=== PATIENT | male | born 1960 | race Caucasian/White ===

== ENCOUNTER 2023-05-24 09:10 | Emergency (ER) | payer OTHER, SELFPAY ==
--- NOTE | ~2023-05-24 | XR_ITS ---
EXAMINATION: XR CHEST CLINICAL INFORMATION: Shortness of breath. COMPARISON: None available. TECHNIQUE: Frontal view of the chest was obtained. FINDINGS: Lungs are well expanded. There appears to be chronic mild pleural thickening at the lung apices. No consolidation, pleural effusion or pneumothorax. Cardiac silhouette is normal in size. The hilar contours are normal. There is atherosclerotic calcification of the aortic arch. The visualized bones are unremarkable. XR/XR chest 1V IMPRESSION: No evidence of acute cardiopulmonary disease.
[2023-05-24 09:18] VITALS: BP 155/96; PULSE 116; O2SAT 100; BMI 29.3
[2023-05-24 09:22] VITALS: BP 140/96; PULSE 116; RESP 26; TEMP 36.6; O2SAT 95
[2023-05-24 09:24] VITALS: O2SAT 99
--- NOTE | 2023-05-24 09:24 | PC.NURSE ---
a&ox3, vss and up to date, sinus tachy on the desk monitor. pt biba d/t SOB/expiratory wheezing that started around 0400 this morning. SOB/WOB noted at tis time. expiratory wheezing noted while standing bedside/upon auscultation. denies hx of asthma/COPD. use of accessory muscles noted at this time. pt states he is feeling extremely anxious. pt denies chest pain on inspiration. received duo-neb treatment via ems. 95% on RA. pt placed on 2L via NC for comfort - 99%. respirations even and labored at this time. pt's bedside for support.
--- NOTE | 2023-05-24 09:32 | ECG_ITS ---
Test Reason : DYSPNEA Blood Pressure : / mmHG Vent. Rate : 115 BPM Atrial Rate : 115 BPM P-R Int : 152 ms QRS Dur : 134 ms QT Int : 346 ms P-R-T Axes : 068 -12 096 degrees QTc Int : 478 ms Sinus tachycardia Non-specific intra-ventricular conduction block T wave abnormality, consider lateral ischemia Abnormal ECG No previous ECGs available Referred By: Kedar Whiting Electronically Signed By:RA CARCAMO MD
[2023-05-24] MEDS: methylPREDNISolone Sod Succ 125 MG/2 ML VIAL IVPUSH (09:43)
--- NOTE | 2023-05-24 09:44 | PC.NURSE ---
pt receiving treatment from RT. xray bedside. medication administered per provider order. labs drawn/sent to lab. ekg completed. pt seems that nebulizer treatment is being effective - seems to be less anxious/shows less WOB/SOB at this time.
[2023-05-24 09:45] LABS: Basophils Absolute Auto 0.1 X10*3/uL (0.0-0.2); Basophils Percent Auto 0.5 % (0-2); Eosinophils Absolute Auto 0.2 X10*3/uL (0.0-0.4); Hematocrit 49.3 % (42.0-52.0); Hemoglobin 16.7 g/dl (14.0-18.0); Imm Gran Abs Auto 0.08 X10*3/uL (0.00-0.03); Imm Gran Pct Auto 0.4 % (0.0-0.4); Lymphocytes Absolute Auto 3.2 X10*3/uL (1.2-4.9); Lymphocytes Percent Auto 15.3 % (20-40); MANUAL DIFF FLAG SCAN; Mean Corpuscular HGB Conc 33.9 g/dl (31.0-36.0); Mean Corpuscular Hemoglobin 31.4 pg (27.0-33.0); Mean Corpuscular Volume 92.7 fL (80.0-98.0); Mean Platelet Volume 10.6 fL (9.4-12.4); Monocytes Absolute Auto 1.8 X10*3/uL (0.1-1.2); Monocytes Percent Auto 8.5 % (2-11); Neutrophils Absolute Auto 15.4 x10*3/uL (2.0-8.3); Neutrophils Percent Auto 74.3 % (45-73); Platelet Count 341 X10*3/uL (160-400); Red Blood Count 5.32 X10*6/uL (4.60-5.80); Red Cell Distribution Width 12.8 % (11.0-16.0); SCAN SMEAR FLAG 1; White Blood Count 20.7 X10*3/uL (4.8-10.8)
--- OUTSIDE RECORDS SUMMARY | 2023-05-24 09:48 | XMS_ITS | Continuity of Care Document ---
Author Name Unknown Organization [facility] Address [address] [place] [address]- Care Team Providers Care Security Systems Manager Name Role Phone Teja LEWIS, Melissa Currie Primary Care Physician [phone] Encounter [facility] N[facility] [id number] Date(s): 03/15/21 - 04/14/21 [facility] [place] [address], [place] [address] Allergies, Adverse Reactions, Alerts Substance Reaction Severity Status NKA Active Immunizations Given and Recorded Vaccine Date Status Refusal Reason SARS-CoV-2 (COVID-19) mRNA-1273 vaccine 10/23/20 R ecorded SARS-CoV-2 (COVID-19) mRNA-1273 vaccine 09/25/20 R ecorded influenza virus vaccine, inactivated 05/20/19 Give n influenza virus vaccine, inactivated 1 05/15/18 Gi raymond influenza virus vaccine, inactivated 2 05/04/17 Gi raymond influenza virus vaccine, inactivated 3 06/13/15 Re corded influenza virus vaccine, inactivated 4 06/12/13 Gi raymond influ virus vac, H1N1, inactive(oldterm) 05/31/12 Given Pneumococcal Vaccine (oldterm) 5 10/01/08 Given Tet/Diphth/Acel, Pertussis (oldterm) 6 10/01/08 Gi raymond 1Result Comment: [05/15/2018] [id number] 2Result Comment: [05/04/2017] [id number] [facility] Note: [facility] on 06[facility]/13 5Admin Note: charted for alicia 6Admin Note: charted for alicia Medications Accu-Chek Compact Lancets See Instructions, # 100 each, Refills 3, Tot. Refills 3, Maintenance, To check fasting blood sugar daily. E11.9 DM II, 12/02/19 15:26:00 EDT, Supply, 190, cm, 04/30/19 14:53:00 EDT, Height Start Date: 12/02/19 Status: Ordered aspirin buffered 81 mg oral tablet 1 tablet = 81 mg, By Mouth, Daily, # 90 tablet, 3 Refills, Maintenance, 08/21/13 11:12:03 Start Date: 08/21/13 Stop Date: 08/16/14 Status: Ordered lisinopril 2.5 mg oral tablet 2.5 mg, 1, tablet, By Mouth, Daily, # 90 tablet, Refills 1, Tot. Refills 1, Maintenance, 03/15/21 18:07:00 EDT, Route to Pharmacy Electronically, [facility], 190, cm, 11/24/20 13:50:00 EDT, Height Start Date: 03/15/21 Status: Ordered metFORMIN 500 mg oral tablet, extended release 2 tablet = 1,000 mg, By Mouth, 2 times a day, # 360 tablet, 3 Refills, Maintenance, 11/24/20 14:13:00 EDT, [facility], 190, cm, 11/24/20 13:50:00 EDT, Height Start Date: 11/24/20 Status: Ordered One Touch Ultra 2 Glucose Meter See Instructions, # 1 each, Maintenance, test sugar daily DX: E11.9, 12/11/19 10:08:00 EDT, Supply,190, cm, 04/30/19 14:53:00 EDT, Height Start Date: 12/11/19 Status: Ordered One Touch Ultra Test Strips See Instructions, # 100 each, Refills 3, Tot. Refills 3, Maintenance, check sugars daily DX: E11.9,12/12/19 9:01:00 EDT, Supply, 190, cm, 04/30/19 14:53:00 EDT, Height Start Date: 12/12/19 Status: Ordered Vitamin D3 See Instructions, 1000 iu daily, 0 Refills, Maintenance, 10/20/16 13:57:05 Start Date: 10/20/16 Status: Ordered Problem List Condition Effective Dates Status Health Status Inform ant Acute myocardial infarction(Confirmed) Active Coronary artery disease(Confirmed) Active Diabetes mellitus type 2(Confirmed) Active Hodgkin lymphoma(Confirmed) 11/21/84 Active Malignant melanoma of skin(Confirmed) 01/21/15 Active Social History Social History Type Response Smoking Status Never smoker entered on: 07/03/14 Sex
--- OUTSIDE RECORDS SUMMARY | 2023-05-24 09:48 | XMS_ITS | Continuity of Care Document ---
Author Name Unknown Organization [facility] Address [address] [place] [address]- Care Team Providers Care Reactor Fueling Supervisor Name Role Phone Teja LEWIS, Melissa Currie Primary Care Physician [phone] Encounter [facility] Date(s): 06/09/20 - 07/09/20 [facility] [address] [place] [address]- Attending Physician: Ish Dominguez Admitting Physician: AdmtrIsh Referring Physician: AdmtrIsh Allergies, Adverse Reactions, Alerts Substance Reaction Severity Status NKA Active Immunizations Given and Recorded Vaccine Date Status Refusal Reason influenza virus vaccine, inactivated 05/20/19 Give n influenza virus vaccine, inactivated 1 05/15/18 Gi raymond influenza virus vaccine, inactivated 2 05/04/17 Gi raymond influenza virus vaccine, inactivated 3 06/13/15 Re corded influenza virus vaccine, inactivated 4 06/12/13 Gi raymond influ virus vac, H1N1, inactive(oldterm) 05/31/12 Given Pneumococcal Vaccine (oldterm) 5 10/01/08 Given Tet/Diphth/Acel, Pertussis (oldterm) 6 10/01/08 Gi raymond 1Result Comment: [05/15/2018] [id number] 2Result Comment: [05/04/2017] [id number] 3[facility] 4Admin Note: given at [...] Date: 08/21/13 Stop Date: 08/16/14 Status: Ordered carvedilol 12.5 mg oral tablet 12.5 mg, 1, tablet, By Mouth, 2 times a day, # 180 tablet, Refills 3, Tot. Refills 3, Maintenance, 03/09/20 21:20:00 EDT, Route to Pharmacy Electronically, [facility], 190, cm, 12/20/19 9:27:00 EDT, Height Start Date: 03/09/20 Status: Ordered Lipitor 80 mg oral tablet 1 tablet = 80 mg, By Mouth, Daily, # 90 tablet, 3 Refills, Maintenance, 03/09/20 21:25:00 EDT, Tablet, [facility], 190, cm, 12/20/19 9:27:00 EDT, Height Start Date: 03/09/20 Status: Ordered lisinopril 2.5 mg oral tablet 2.5 mg, 1, tablet, By Mouth, Daily, # 90 tablet, Refills 3, Tot. Refills 3, Maintenance, 03/09/20 21:19:00 EDT, Route to Pharmacy Electronically, [facility], 190, cm, 12/20/19 9:27:00 EDT,Height Start Date: 03/09/20 Status: Ordered metFORMIN 500 mg oral tablet, extended release 2 tablet = 1,000 mg, By Mouth, 2 times a day, # 360 tablet, 3 Refills, Maintenance, 12/20/19 11:01:00 EDT, [facility], 190, cm, 12/20/19 9:27:00 EDT, Height Start Date: 12/20/19 Status: Ordered One Touch Ultra 2 Glucose [...]
--- OUTSIDE RECORDS SUMMARY | 2023-05-24 09:48 | XMS_ITS | Continuity of Care Document ---
Author Name Unknown Organization [facility] Address [address] [place] [address]- Care Team Providers Care Manager Activities Name Role Phone Teja LEWIS, Melissa Currie Primary Care Physician [phone] [facility]counter [facility] Date(s): 07/06/21 - 08/05/21 [facility] Adult [address] [place] [address]- Allergies, Adverse Reactions, Alerts Substance Reaction Severity Status NKA Active Immunizations Given and Recorded Vaccine Date Status Refusal Reason SARS-CoV-2 (COVID-19) mRNA-1273 vaccine 05/25/21 R ecorded SARS-CoV-2 (COVID-19) mRNA-1273 vaccine 10/23/20 R ecorded SARS-CoV-2 (COVID-19) mRNA-1273 vaccine 09/25/20 R ecorded influenza virus vaccine, inactivated 05/06/21 Kaleb rded influenza virus vaccine, inactivated 05/20/19 Give n influenza virus vaccine, inactivated 1 05/15/18 Gi raymond influenza virus vaccine, inactivated 2 05/04/17 Gi raymond influenza virus vaccine, inactivated 3 06/13/15 Re corded influenza virus vaccine, inactivated 4 06/12/13 Gi raymond influ virus vac, H1N1, inactive(oldterm) 05/31/12 Given Pneumococcal Vaccine (oldterm) 5 10/01/08 Given Tet/Diphth/Acel, Pertussis (oldterm) 6 10/01/08 Gi raymond 1Result Comment: [05/15/2018] [id number] 2Result Comment: [05/04/2017] 10911-995-23 3[facility] 4Admin Note: given at [...] 03/15/21 18:07:00 EDT, Route to Pharmacy Electronically, [facility], 190, cm, 11/24/20 13:50:00 EDT, Height Start Date: 03/15/21 Status: Ordered metFORMIN 500 mg oral tablet, extended release 2 tablet = 1,000 mg, By Mouth, 2 times a day, # 360 tablet, 3 Refills, Maintenance, 11/24/20 14:13:00 EDT, [facility], 190, cm, 11/24/20 13:50:00 [...] 0 Refills, Maintenance, 10/20/16 13:57:05 Start Date: 3/23/17 Status: Ordered Problem List Condition Effective Dates Status Health Status Inform ant Acute myocardial infarction(Confirmed) Active Coronary artery disease(Confirmed) Active Diabetes mellitus type 2(Confirmed) Active Hodgkin lymphoma(Confirmed) 11/21/84 Active Malignant melanoma of skin(Confirmed) 01/21/15 Active Social History Social History Type Response Smoking Status Never smoker entered on: 07/03/14 Sex
--- OUTSIDE RECORDS SUMMARY | 2023-05-24 09:48 | XMS_ITS | Continuity of Care Document ---
Author Name Unknown Organization [facility] Address [address] [place] [address]- Care Team Providers Care Industrial Locomotive Operator Name Role Phone Teja LEWIS, Melissa Currie Primary Care Physician [phone] Encounter [facility] Date(s): 05/31/22 - 06/30/22 [facility] [address] [place] [address]- Allergies, Adverse Reactions, Alerts No Known Allergies Immunizations Given and Recorded Vaccine Date Status Refusal Reason influenza virus vaccine, inactivated 06/01/22 Kaleb rded influenza virus vaccine, inactivated 05/06/21 Kaleb rded influenza virus vaccine, inactivated 05/20/19 Give n influenza virus vaccine, inactivated 1 05/15/18 Gi raymnod influenza virus vaccine, inactivated 2 05/04/17 Gi raymond influenza virus vaccine, inactivated 3 06/13/15 Re corded influenza virus vaccine, inactivated 4 06/12/13 Gi raymond zoster vaccine, inactivated 05/02/22 Recorded zoster vaccine, inactivated 01/10/22 Recorded SARS-CoV-2 (COVID-19) mRNA-1273 vaccine 11/29/21 R ecorded SARS-CoV-2 (COVID-19) mRNA-1273 vaccine 05/25/21 R ecorded SARS-CoV-2 (COVID-19) mRNA-1273 vaccine 10/23/20 R ecorded SARS-CoV-2 (COVID-19) mRNA-1273 vaccine 09/25/20 R ecorded influ virus vac, H1N1, inactive(oldterm) 05/31/12 Given Pneumococcal Vaccine (oldterm) 5 10/01/08 Given Tet/Diphth/Acel, Pertussis (oldterm) 6 10/01/08 Gi raymond 1Result Comment: [05/15/2018] [id number] 2Result Comment: [05/04/2017] [id number] 3[facility] 4Admin Note: given at [...] times a day, # 180 tablet, Refills 2, Tot. Refills 2, Maintenance, 02/07/22 11:21:00 EDT, Route to Pharmacy Electronically, [facility], 190, cm, 02/07/22 11:05:00 EDT, Height Start Date: 02/07/22 Status: Ordered Farxiga 5 mg oral tablet 1 tablet = 5 mg, By Mouth, Daily, # 30 tablet, 6 Refills, Maintenance, 06/13/22 11:11:00 EST, Tablet, Partial fill upon patient request if the prescription is for a schedule II opioid drug. Start Date: 06/13/22 Status: Ordered Lipitor 80 mg oral tablet 1 tablet = 80 mg, By Mouth, Daily, # 90 tablet, 3 Refills, Maintenance, 02/07/22 11:21:00 EDT, Tablet, [facility], 190, cm, 02/07/22 11:05:00 EDT, Height Start Date: 02/07/22 Status: Ordered lisinopril 2.5 mg oral tablet 2.5 mg, 1, tablet, By Mouth, Daily, # 90 tablet, Refills 2, Tot. Refills 2, Maintenance, 02/07/22 11:21:00 EDT, Route to Pharmacy Electronically, [facility], 190, cm, 02/07/22 11:05:00 EDT, Height Start Date: 02/07/22 Status: Ordered metFORMIN 500 mg oral tablet, extended release 2 tablet = 1,000 mg, By Mouth, 2 times a day, # 360 tablet, 3 Refills, Maintenance, 02/07/22 11:22:00 EDT, [facility], 190, cm, 02/07/22 11:05:00 EDT, Height Start Date: 02/07/22 Status: Ordered One Touch Ultra 2 Glucose [...] Date: 10/20/16 Status: Ordered Problem List Condition Confirmation Course Effective Dates Status H ealth Status Informant Coronary artery disease 1 Confirmed Active History of Hodgkin's lymphoma Confirmed Active H/O malignant melanoma of skin Confirmed 01/21/15 Active Ischemic cardiomyopathy (LVEF ~low 20's) 2 Confirmed Active 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 2Per cardiology notes; last echo 2013. 3Complicated by CAD/iS/P VT 2007. Social History Social History Type Response Smoking Status Never smoker entered on: 07/03/14 Sex Patient Care team information Care Team Personnel Name: Melissa Lezama NP Position: S PCO Associate Professional Member Role: PCP Address: Address: [address] [place] [id number]- Name: Edna BILL, Jordyn Clark Position: [facility] PCO RN Member Role: Primary Care Nurse Care Team Related Persons Name: CARMEN VILLASENOR Address: home [address] [place] [id number]
--- OUTSIDE RECORDS SUMMARY | 2023-05-24 09:48 | XMS_ITS | Continuity of Care Document ---
Author Name Unknown Organization [facility] Address [address] [place] [address]- Care Team Providers Care Staff Development Manager Name Role Phone Teja LEWIS, Melissa Currie Primary Care Physician [facility]counter [facility] Date(s): 03/24/23 - 04/23/23 [facility] [address] [place] [address]- Allergies, Adverse Reactions, Alerts No Known Allergies Immunizations Given and Recorded Vaccine Date Status Refusal Reason tetanus-diphtheria toxoids (Td) 03/21/23 Given [id number] bivalent booster vax 06/15/22 Recorded influenza virus vaccine, inactivated 06/01/22 Kaleb rded [...] 6 10/01/08 Gi raymond 1Result Comment: [05/15/2018] [id number] 2Result Comment: [05/04/2017] [id number] 3[facility] 4Admin Note: given at [...] tablet, Refills 2, Tot. Refills 2, Maintenance, 11/23/22 9:28:00 EDT, Route to Pharmacy Electronically, [facility], 190, cm, 11/23/22 8:54:00 EDT, Height Start Date: 11/23/22 Status: Ordered Jardiance 10 mg oral tablet 1 tablet = 10 mg, By Mouth, Daily in AM, # 90 tablet, 3 Refills, Maintenance, 07/05/22 8:57:00 EST,Partial fill upon patient request if the prescription is for a schedule II opioid drug. Start Date: 07/05/22 Stop Date: 06/30/23 Status: Ordered Lipitor 80 mg oral tablet 1 tablet = 80 mg, By Mouth, Daily, # 90 tablet, 3 Refills, Maintenance, 03/21/23 10:05:00 EDT, Tablet, [facility], 190, cm, 03/21/23 9:40:00 EDT, Height Start Date: 03/21/23 Status: Ordered lisinopril 2.5 mg oral tablet 2.5 mg, 1, tablet, By Mouth, Daily, # 90 tablet, Refills 2, Tot. Refills 2, Maintenance, 11/23/22 9:28:00 EDT, Route to Pharmacy Electronically, [facility], 190, cm, 11/23/22 8:54:00 EDT, Height Start Date: 11/23/22 Status: Ordered metFORMIN 500 mg oral tablet, extended release 2 tablet = 1,000 mg, By Mouth, 2 times a day, # 360 tablet, 3 Refills, Maintenance, 11/23/22 9:28:00 EDT, [facility], 190, cm, 11/23/22 8:54:00 EDT, Height Start Date: 11/23/22 Status: Ordered One Touch Ultra 2 Glucose [...] (LVEF ~low 20's) [address] (myocardial infarction) Confirmed Active Type 2 diabetes mellitus with other circulatory complications 3 Confirmed Active 1S/P CT; bare metal stent to LAD 2007. 2Per cardiology notes; last echo 2013. 3Complicated by CAD/iS/P CT 2007. Social History Social History Type Response Smoking Status Never smoker entered on: 07/03/14 Sex Patient Care team information Care Team Personnel Name: Teja LEWIS, Melissa uCrrie Position: [facility] PCO Associate Professional Member Role: PCP Address: Address: [address] [place] [address]- Name: Jordyn Bishop RN Position: [facility] AMB Nurse Member Role: Primary Care Nurse Care Team Related Persons Name: CARMEN VILLASENOR Address: home [address] [place] [id number]
--- OUTSIDE RECORDS SUMMARY | 2023-05-24 09:48 | XMS_ITS | Continuity of Care Document ---
Author Name Unknown Organization [facility] Address [address] [place] [address]- Care Team Providers Care Novelty Chain Maker Name Role Phone Teja LEWIS, Melissa Currie Primary Care Physician [phone] [facility]counter [facility] Date(s): 12/21/20 - 01/20/21 [facility] [address] [place] [address]- Allergies, Adverse Reactions, Alerts Substance Reaction Severity [...] 6 10/01/08 Gi raymond 1Result Comment: [05/15/2018] [id number] 2Result Comment: [05/04/2017] 56033-592-78 3[facility] 4Admin Note: given at [...] tablet, Refills 3, Tot. Refills 3, Maintenance, 11/30/20 14:17:00 EDT, Route to Pharmacy Electronically, [facility], 190, cm, 11/24/20 13:50:00 EDT, Height Start Date: 11/30/20 Status: Ordered Lipitor 80 mg oral tablet 1 tablet = 80 mg, By Mouth, Daily, # 90 tablet, 0 Refills, Maintenance, 11/24/20 14:16:00 EDT, Tablet, [facility], 190, cm, 11/24/20 13:50:00 EDT, Height Start Date: 11/24/20 Status: Ordered lisinopril 2.5 mg oral tablet 2.5 mg, 1, tablet, By Mouth, Daily, # 90 tablet, Refills 3, Tot. Refills 3, Maintenance, 03/09/20 21:19:00 EDT, Route to Pharmacy Electronically, [facility], 190, cm, 12/20/19 9:27:00 EDT,Height Start Date: 03/09/20 Status: Ordered metFORMIN 500 mg oral tablet, extended release 2 tablet = 1,000 mg, By Mouth, 2 times a day, # 360 tablet, 3 Refills, Maintenance, 11/24/20 14:13:00 EDT, [facility], 190, cm, 11/24/20 13:50:00 EDT, [...]
--- OUTSIDE RECORDS SUMMARY | 2023-05-24 09:48 | XMS_ITS | Continuity of Care Document ---
Author Name Unknown Organization [facility] Address [address] [place] [address]- Care Team Providers Care Supervisor Cold Rolling Name Role Phone Teja LEWIS, Melissa Currie Primary Care Physician Encounter [facility] Date(s): 06/17/20 - 10/15/20 [facility] Adult [address] [place] [address]- Attending Physician: Teja LEWIS, Melissa Currie Referring Physician: El Paz MD Allergies, Adverse Reactions, Alerts Substance Reaction Severity [...] 6 10/01/08 Gi raymond 1Result Comment: [05/15/2018] [id number] 2Result Comment: [05/04/2017] [id number] 3[facility] 4Admin Note: given at [...] 03/09/20 21:20:00 EDT, Route to Pharmacy Electronically, [facility], 190, cm, 12/20/19 9:27:00 EDT, Height Start Date: 03/09/20 Status: Ordered Lipitor 80 mg oral tablet 1 tablet = 80 mg, By Mouth, Daily, # 90 tablet, 3 Refills, Maintenance, 03/09/20 21:25:00 EDT, Tablet, [facility], 190, cm, 12/20/19 9:27:00 EDT, Height Start Date: 03/09/20 Status: Ordered lisinopril 2.5 mg oral tablet 2.5 mg, 1, tablet, By Mouth, Daily, # 90 tablet, Refills 3, Tot. Refills 3, Maintenance, 03/09/20 21:19:00 EDT, Route to Pharmacy Electronically, [facility], 190, cm, 12/20/19 9:27:00 EDT,Height Start Date: 03/09/20 Status: Ordered metFORMIN 500 mg oral tablet, extended release 2 tablet = 1,000 mg, By Mouth, 2 times a day, # 360 tablet, 3 Refills, Maintenance, 12/20/19 11:01:00 EDT, [facility], 190, cm, 12/20/19 9:27:00 EDT, [...]
--- OUTSIDE RECORDS SUMMARY | 2023-05-24 09:48 | XMS_ITS | Continuity of Care Document ---
Author Name Unknown Organization [facility] Address [address] [place] [address]- Care Team Providers Care Skeiner Name Role Phone Teja LEWIS, Melissa Currie Primary Care Physician [phone] [facility]counter [facility] Date(s): 07/13/21 - 07/20/21 [facility] Adult [address] [place] [address]- Encounter Diagnosis Coronary artery disease(Discharge Diagnosis) - 07/13/21 Diabetes mellitus type 2(Discharge Diagnosis) - 07/13/21 Hodgkin lymphoma(Discharge Diagnosis) - 07/13/21 Malignant melanoma of skin(Discharge Diagnosis) - 07/13/21 Attending Physician: Melissa Lezama NP Allergies, Adverse Reactions, Alerts Substance Reaction Severity [...] 6 10/01/08 Gi raymond 1Result Comment: [05/15/2018] 78816-708-76 2Result Comment: [05/04/2017] 28618-417-29 3[facility] 4Admin Note: given at [...] 03/15/21 18:07:00 EDT, Route to Pharmacy Electronically, [facility], 190, cm, 11/24/20 13:50:00 EDT, Height Start Date: 03/15/21 Status: Ordered metFORMIN 500 mg oral tablet, extended release 2 tablet = 1,000 mg, By Mouth, 2 times a day, # 360 tablet, 3 Refills, Maintenance, 11/24/20 14:13:00 EDT, [facility], 190, cm, 11/24/20 13:50:00 EDT, [...] Active Malignant melanoma of skin(Confirmed) 01/21/15 Active Diagnosis Diagnosis Type Effective Dates Health Status Cl inical Service Informant Coronary artery disease Discharge Diagnosis 07/13/21 Diabetes mellitus type 2 Discharge Diagnosis 07/13/21 Hodgkin lymphoma Discharge Diagnosis 07/13/21 Malignant melanoma of skin Discharge Diagnosis 07/13/21 Vital Signs Most recent to oldest [Reference Range]: 1 Height 190 cm (07/13/21 2:45 PM) Social History Social History Type Response Smoking Status Never smoker entered on: 07/03/14 Sex
--- OUTSIDE RECORDS SUMMARY | 2023-05-24 09:48 | XMS_ITS | Continuity of Care Document ---
Author Name Unknown Organization [facility] [place] Zach lt Address [address] [place] [address]- Care Team Providers Care Tray Setter Name Role Phone Teja LEWIS, Melissa Currie Primary Care Physician [facility] Date[facility]s): 02/07/22 - 02/14/22 [facility] [place] Adult [address] [place] [address]- Encounter Diagnosis Acute myocardial infarction(Discharge Diagnosis) - 02/07/22 Diabetes mellitus type 2(Discharge Diagnosis) - 02/07/22 Malignant melanoma of skin(Discharge Diagnosis) - 02/07/22 Attending Physician: Not on Staff, Attending MD Referring Physician: Melissa Lezama NP Allergies, Adverse Reactions, Alerts No Known Allergies Immunizations Given and Recorded Vaccine Date Status Refusal Reason zoster vaccine, inactivated 01/10/22 Recorded SARS-CoV-2 (COVID-19) [...] 6 10/01/08 Gi raymond 1Result Comment: [05/15/2018] 20937-943-00 2Result Comment: [05/04/2017] [id number] 3[facility] 4Admin Note: given at [...] 02/07/22 11:21:00 EDT, Route to Pharmacy Electronically, [facility], 190, cm, 02/07/22 11:05:00 EDT, Height Start Date: 02/07/22 Status: Ordered Jardiance 10 mg oral tablet 1 tablet = 10 mg, By Mouth, Daily in AM, # 30 tablet, 6 Refills, Maintenance, 02/08/22 13:55:00 EDT, Tablet, Partial fill upon patient request if the prescription is for a schedule II opioid drug. Start Date: 02/08/22 Status: Ordered Lipitor 80 mg oral tablet [...] 02/07/22 11:21:00 EDT, Route to Pharmacy Electronically, [facility], 190, cm, 02/07/22 11:05:00 EDT, Height Start Date: 02/07/22 Status: Ordered metFORMIN 500 mg oral tablet, extended release 2 tablet = 1,000 mg, By Mouth, 2 times a day, # 360 tablet, 3 Refills, Maintenance, 02/07/22 11:22:00 EDT, [facility], 190, cm, 02/07/22 11:05:00 [...] disease(Confirmed) Active Diabetes mellitus type 2(Confirmed) Active History of Hodgkin's lymphoma(Confirmed) Active Malignant melanoma of skin(Confirmed) 01/21/15 Active Diagnosis Diagnosis Type Effective Dates Health Status Clinical Service Informant Acute myocardial infarction Discharge Diagnosis 02/07/22 Diabetes mellitus type 2 Discharge Diagnosis 02/07/22 Malignant melanoma of skin Discharge Diagnosis 02/07/22 Vital Signs Most recent to oldest [Reference Range]: 1 Height 190 cm (02/07/22 11:05 AM) Weight 83.6 kg (02/07/22 11:05 AM) Oxygen Saturation [94-100 %] 98 % (02/07/22 11:05 AM) Pulse Rate [55-90 bpm] 72 bpm (02/07/22 11:05 AM) Body Mass Index [18.5-24.99] 23.16 (02/07/22 11:05 AM) Blood Pressure [90-138/55-84 mm Hg] 97/6 0mm Hg (02/07/22 11:05 AM) Temperature [96.8-100.4 DegF] 97.6 DegF (02/07/22 11:05 AM) Blood pressure sites Arm, left (02/07/22 11:05 AM) Temperature Route Temporal (02/07/22 11:05 AM) Weight Obtained Via Standing scale (02/07/22 11:05 AM) Social History Social History Type Response Smoking Status Never smoker entered on: 07/03/14 Sex
--- OUTSIDE RECORDS SUMMARY | 2023-05-24 09:48 | XMS_ITS | Continuity of Care Document ---
Author Name Unknown Organization [facility] Address [address] [place] [address]- Care Team Providers Care Websphere Administrator Name Role Phone Teja LEWIS, Melissa Currie Primary Care Physician Encounter [facility] [place] Date(s): 02/11/21 - 05/22/21 [facility] [address] [place] [address]- Attending Physician: Ebonie Brewer MD Admitting Physician: Ebonei Brewer MD Referring Physician: Melissa Lezama NP Allergies, [...] 6 10/01/08 Gi raymond 1Result Comment: [05/15/2018] 73117-812-37 2Result Comment: [05/04/2017] 42262-915-66 3[facility] 4Admin Note: given at [...] 03/15/21 18:07:00 EDT, Route to Pharmacy Electronically, [facility], 190, cm, 11/24/20 13:50:00 EDT, Height Start Date: 03/15/21 Status: Ordered metFORMIN 500 mg oral tablet, extended release 2 tablet = 1,000 mg, By Mouth, 2 times a day, # 360 tablet, 3 Refills, Maintenance, 11/24/20 14:13:00 EDT, [facility], 190, cm, 11/24/20 13:50:00 [...]
--- OUTSIDE RECORDS SUMMARY | 2023-05-24 09:48 | XMS_ITS | Continuity of Care Document ---
Author Name Unknown Organization [facility] Address [address] [place] [address]- Care Team Providers Care Intelligence Clerk Name Role Phone Teja LEWIS, Melissa Currie Primary Care Physician Encounter [facility] [place] Date(s): 11/22/19 - 03/21/20 [facility] [address] [place] [address]- [facility] Attending Physician: Ebonie Brewer MD Admitting Physician: Ebonie Brewer MD Referring Physician: Melissa Lezama NP [...] 6 10/01/08 Gi raymond 1Result Comment: [05/15/2018] [id number] 2Result Comment: [05/04/2017] [id number] 3[facility] History: [facility] 4Admin Note: given at [facility] on 06/11/13 5Admin Note: charted for alicia 6Admin Note: charted for alicia Medications Accu-Chek Compact Lancets See Instructions, # 100 each, Refills 3, Tot. Refills 3, Maintenance, To check fasting blood sugar daily. E11.9 DM II, 05/04/20 15:26:00 EDT, Supply, 190, cm, 04/30/19 14:53:00 [...] 03/09/20 21:20:00 EDT, Route to Pharmacy Electronically, [facility], 190, cm, 12/20/19 9:27:00 EDT, Height Start Date: 03/09/20 Status: Ordered Lipitor 80 mg oral tablet 1 tablet = 80 mg, By Mouth, Daily, # 90 tablet, 3 Refills, Maintenance, 03/09/20 21:25:00 EDT, Tablet, [facility], 190, cm, 12/20/19 9:27:00 EDT, Height Start Date: 03/09/20 Status: Ordered lisinopril 2.5 mg oral tablet 2.5 mg, 1, tablet, By Mouth, Daily, # 90 tablet, Refills 3, Tot. Refills 3, Maintenance, 03/09/20 21:19:00 EDT, Route to Pharmacy Electronically, [facility]278, 190, cm, 12/20/19 9:27:00 EDT,Height Start Date: 03/09/20 Status: Ordered metFORMIN 500 mg oral tablet, extended release 2 tablet = 1,000 mg, By Mouth, 2 times a day, # 360 tablet, 3 Refills, Maintenance, 12/20/19 11:01:00 EDT, [facility], 190, cm, 12/20/19 9:27:00 EDT, [...]
--- OUTSIDE RECORDS SUMMARY | 2023-05-24 09:49 | XMS_ITS | Continuity of Care Document ---
Author Name Unknown Organization [facility] Zach lt Address [address] [place] [address]- Care Team Providers Care Timber Girdler Name Role Phone Teja LEWIS, Melissa Currie Primary Care Physician [phone] Encounter [facility] [place] Date(s): 07/04/22 - 08/03/22 [facility] Adult [address] [place] [address]- Allergies, Adverse Reactions, Alerts No Known Allergies [...] 6 10/01/08 Gi raymond 1Result Comment: [05/15/2018] 42606-804-09 2Result Comment: [05/04/2017] [id number] 3[facility] 4Admin Note: given at [...] 02/07/22 11:21:00 EDT, Route to Pharmacy Electronically, [facility]278, 190, cm, 02/07/22 11:05:00 EDT, [...] 02/07/22 11:21:00 EDT, Route to Pharmacy Electronically, [facility]278, 190, cm, 02/07/22 11:05:00 EDT, Height Start Date: 02/07/22 Status: Ordered metFORMIN 500 mg oral tablet, extended release 2 tablet = 1,000 mg, By Mouth, 2 times a day, # 360 tablet, 3 Refills, Maintenance, 02/07/22 11:22:00 EDT, [facility], 190, cm, 02/07/22 11:05:00 EDT, [...] (LVEF ~low 20's) 2 Confirmed Active [place] (myocardial infarction) Confirmed Active Type 2 diabetes mellitus with other circulatory complications 3 Confirmed Active 1S/P [place]; bare metal stent to LAD 2007. 2Per cardiology notes; last echo 2013. 3Complicated by CAD/iS/P [place] 2007. Social History Social History Type Response Smoking Status Never smoker entered on: 07/03/14 Sex Patient Care team information Care Team Personnel Name: Melissa Lezama NP Position: [facility] Associate Professional Member Role: PCP Address: Address: [address] [place] [address]- Name: Edna BILL, Jordyn Clark Position: [facility] RN Member Role: Primary Care Nurse Care Team Related Persons Name: CARMEN VILLASENOR Address: home [address] [place] [address]
--- OUTSIDE RECORDS SUMMARY | 2023-05-24 09:49 | XMS_ITS | Continuity of Care Document ---
Author Name Unknown Organization [facility] Zach lt Address [address] [place] [address]- Care Team Providers Care Wharf Attendant Name Role Phone Teja LEWIS, Melissa Currie Primary Care Physician [facility] Date(s): 03/27/23 - 04/26/23 [facility] Adult [address] [place] [address]- Allergies, Adverse Reactions, Alerts No Known Allergies Immunizations Given and Recorded Vaccine Date Status Refusal Reason tetanus-diphtheria toxoids (Td) 03/21/23 Given [id number] bivalent booster vax 06/15/22 Recorded influenza virus [...] 6 10/01/08 Gi raymond 1Result Comment: [05/15/2018] [id number] 2Result Comment: [05/04/2017] [id number] 3Location History: [facility] 4Admin Note: given at [...] 11/23/22 9:28:00 EDT, Route to Pharmacy Electronically, [facility]278, 190, cm, 11/23/22 8:54:00 [...] 11/23/22 9:28:00 EDT, Route to Pharmacy Electronically, [facility]278, 190, cm, 11/23/22 8:54:00 EDT, Height Start Date: 11/23/22 Status: Ordered metFORMIN 500 mg oral tablet, extended release 2 tablet = 1,000 mg, By Mouth, 2 times a day, # 360 tablet, 3 Refills, Maintenance, 11/23/22 9:28:00 EDT, [facility], 190, cm, 11/23/22 8:54:00 [...] (LVEF ~low 20's) 2 Confirmed Active [place] (myocardial infarction) Confirmed Active Type 2 diabetes mellitus with other circulatory complications 3 Confirmed Active 1S/P [place]; bare metal stent to LAD 2007. 2Per cardiology notes; last echo 2013. 3Complicated by CAD/iS/P [place] 2007. Social History Social History Type Response Smoking Status Never smoker entered on: 07/03/14 Sex Patient Care team information Care Team Personnel Name: Teja LEWIS, Melissa Currie Position: [facility] Associate Professional Member Role: PCP Address: Address: [address] [place] [address]- Name: Jordyn Bishop RN Position: [facility] SN RN Member Role: Primary Care Nurse Care Team Related Persons Name: CARMEN VILLASENOR Address: home [address] [place] [address]
--- OUTSIDE RECORDS SUMMARY | 2023-05-24 09:49 | XMS_ITS | Continuity of Care Document ---
Author Name Unknown Organization [facility] Zach lt Address [address] [place] [address]- Care Team Providers Care House Designer Name Role Phone Teja LEWIS, Melissa Currie Primary Care Physician [facility] Date(s): 07/04/22 - 08/03/22 [facility] Adult [address] [place] [address]- Allergies, Adverse Reactions, Alerts No Known Allergies [...] 6 10/01/08 Gi raymond 1Result Comment: [05/15/2018] [id number] 2Result Comment: [05/04/2017] [id number] 3Location History: [facility] 4Admin Note: given at [...] 02/07/22 11:21:00 EDT, Route to Pharmacy Electronically, [facility], 190, cm, 02/07/22 11:05:00 EDT, Height Start [...] 02/07/22 11:21:00 EDT, Route to Pharmacy Electronically, [facility], 190, cm, 02/07/22 11:05:00 EDT, Height Start Date: 02/07/22 Status: Ordered metFORMIN 500 mg oral tablet, extended release 2 tablet = 1,000 mg, By Mouth, 2 times a day, # 360 tablet, 3 Refills, Maintenance, 02/07/22 11:22:00 EDT, [facility], 190, cm, 02/07/22 [...] (LVEF ~low 20's) 2 Confirmed Active [place] (myocardial infarction) Confirmed Active Type 2 diabetes mellitus with other circulatory complications 3 Confirmed Active 1S/P [place]; bare metal stent to LAD 2007. 2Per cardiology notes; last echo 2013. 3Complicated by CAD/iS/P [place] 2007. Social History Social History Type Response Smoking Status Never smoker entered on: 07/03/14 Sex Patient Care team information Care Team Personnel Name: Melissa Lezama NP Position: [facility] Associate Professional Member Role: PCP Address: Address: [address] [place] [address]- Name: Edna BILL, Jordyn Clark Position: [facility] RN Member Role: Primary Care Nurse Care Team Related Persons Name: CARMEN VILLASENOR Address: home [address] [place] [address]
--- OUTSIDE RECORDS SUMMARY | 2023-05-24 09:49 | XMS_ITS | Continuity of Care Document ---
Author Name Unknown Organization [facility] Zach lt Address [address] [place] [address]- Care Team Providers Care Packing Line Worker Name Role Phone Teja LEWIS, Melissa Currie Primary Care Physician Encounter [facility] [place] Date(s): 05/14/22 - 11/04/22 [facility] Adult [address] [place] [address]- Attending Physician: Melissa Lezama NP Referring Physician: Teja LEWIS, Melissa Currie Allergies, Adverse Reactions, Alerts No Known Allergies [...] 6 10/01/08 Gi raymond 1Result Comment: [05/15/2018] [id number] 2Result Comment: [05/04/2017] [id number] 3Location History: [facility] 4Admin Note: given at [...] 02/07/22 11:21:00 EDT, Route to Pharmacy Electronically, [facility]278, 190, cm, 02/07/22 11:05:00 [...] 02/07/22 11:21:00 EDT, Route to Pharmacy Electronically, [facility]278, 190, cm, 02/07/22 11:05:00 EDT, Height Start Date: 02/07/22 Status: Ordered metFORMIN 500 mg oral tablet, extended release 2 tablet = 1,000 mg, By Mouth, 2 times a day, # 360 tablet, 3 Refills, Maintenance, 02/07/22 11:22:00 EDT, [facility], 190, cm, 02/07/22 11:05:00 [...] (LVEF ~low 20's) 2 Confirmed Active [place] (myocardial infarction) Confirmed Active Type 2 diabetes mellitus with other circulatory complications 3 Confirmed Active 1S/P [place]; bare metal stent to LAD 2007. 2Per cardiology notes; last echo 2013. 3Complicated by CAD/iS/P [place] 2007. Social History Social History Type Response Smoking Status Never smoker entered on: 07/03/14 Sex Patient Care team information Care Team Personnel Name: Melissa Lezama NP Position: [facility] Associate Professional Member Role: PCP Address: Address: [address] [place] [address]- Name: Jordyn Bishop RN Position: [facility] RN Member Role: Primary Care Nurse Care Team Related Persons Name: CARMEN VILLASENOR Address: home [address] [place] [address]
--- OUTSIDE RECORDS SUMMARY | 2023-05-24 09:49 | XMS_ITS | Continuity of Care Document ---
Author Name Unknown Organization [facility] Zach lt Address [address] [place] [address]- Care Team Providers Care Properties Supervisor Name Role Phone Teja LEWIS, Melissa Currie Primary Care Physician [facility] Date(s): 02/15/22 - 03/17/22 [facility] Adult [address] [place] [address]- Allergies, Adverse Reactions, Alerts No Known Allergies [...] 6 10/01/08 Gi raymond 1Result Comment: [05/15/2018] [id number] 2Result Comment: [05/04/2017] [id number] 3[facility] History: [facility] 4Admin Note: given at [...] 02/07/22 11:21:00 EDT, Route to Pharmacy Electronically, [facility], 190, cm, 02/07/22 [...] 02/07/22 11:21:00 EDT, Route to Pharmacy Electronically, [facility], 190, cm, 02/07/22 11:05:00 EDT, Height Start Date: 02/07/22 Status: Ordered metFORMIN 500 mg oral tablet, extended release 2 tablet = 1,000 mg, By Mouth, 2 times a day, # 360 tablet, 3 Refills, Maintenance, 02/07/22 11:22:00 EDT, [facility], 190, cm, 02/07/22 [...]
--- OUTSIDE RECORDS SUMMARY | 2023-05-24 09:49 | XMS_ITS | Continuity of Care Document ---
Author Name Unknown Organization [facility] Zach lt Address [address] [place] [address]- Care Team Providers Care Food And Beverage Checker Name Role Phone Teja LEWIS, Melissa Currie Primary Care Physician [place] [facility] [place] - 11[place]30/22 [facility] Adult [address] [place] [address]- Encounter Diagnosis Type 2 diabetes mellitus with other circulatory complications(Discharge Diagnosis) - 11/23/22 Hypercholesterolemia(Discharge Diagnosis) - 11/23/22 Hypertension(Discharge Diagnosis) - 11/23/22 Attending Physician: Not on Staff, Attending MD Allergies, Adverse Reactions, Alerts No Known Allergies [...] 6 10/01/08 Gi raymond 1Result Comment: [05/15/2018] [id number] 2Result Comment: [05/04/2017] [id number] 3[facility] 4Admin Note: given at [...] 11/23/22 9:28:00 EDT, Route to Pharmacy Electronically, [facility]278, 190, cm, 11/23/22 8:54:00 [...] 11/23/22 9:28:00 EDT, Route to Pharmacy Electronically, [facility] 5278, 190, cm, 11/23/22 8:54:00 EDT, Height Start Date: 11/23/22 Status: Ordered metFORMIN 500 mg oral tablet, extended release 2 tablet = 1,000 mg, By Mouth, 2 times a day, # 360 tablet, 3 Refills, Maintenance, 11/23/22 9:28:00 EDT, [facility]278, 190, cm, 11/23/22 8:54:00 [...] (LVEF ~low 20's) 2 Confirmed Active Old [place] (myocardial infarction) Confirmed Active Type 2 diabetes mellitus with other circulatory complications 3 Confirmed Active 1S/P [place]; bare metal stent to LAD 2007. 2Per cardiology notes; last echo 2013. 3Complicated by CAD/iS/P [place] 2007. Diagnosis Diagnosis Type Effective Dates Health Status Clinical Service Informant Type 2 diabetes mellitus with other circulatory complications Discharge Diagnosis 11/23/22 Hypercholesterolemia Discharge Diagnosis 11/23/22 Hypertension Discharge Diagnosis 11/23/22 Vital Signs Most recent to oldest [Reference Range]: 1 Height 190 cm (11/23/22 8:54 AM) Weight 81.4 kg (11/23/22 8:54 AM) Oxygen Saturation [94-100 %] 98 % (11/23/22 8:54 AM) Pulse Rate [55-90 bpm] 71 bpm (11/23/22 8:54 AM) Body Mass Index [18.5-24.99 kg/m2] 22.55 kg/m2 (11/23/22 8:54 AM) Blood Pressure [90-138/55-84 mm Hg] 111/ 70mm Hg (11/23/22 8:54 AM) Blood pressure sites Arm, left (11/23/22 8:54 AM) Weight Obtained Via Standing scale (11/23/22 8:54 AM) Social History Social History Type Response Smoking Status Never smoker entered on: 07/03/14 Sex Note * Purnima Trejo: PERFORM, SIGN, VERIFY Event Display: Patient Education/Instruction Authored Date: [id number] [facility] *BMP So Tad Reynoso Clinical Summary Name NELLA MCCOLLUM Age 62 Years 1960 PCP Teja LEWIS, [facility] Cur[id number] Visit Date 11/23/2022 08:44:00 Additional Instructions: Scheduled Appointments?? Future Appointments ?No Future Appointments Scheduled Follow-Up Instructions ?? Diagnosis Type 2 diabetes mellitus with other circulatory complications; Essential (primary) hypertension; Pure hypercholesterolemia, unspecified Medications: Please continue your medications until treatment is completed or stopped by your provider. Discuss any questions related to medications with your provider. Medications to Continue with No Changes [facility], [address] [place] [id number], [phone] Carvedilol (carvedilol 12.5 mg oral tablet) 1 tab(s) Oral twice a day. Refills: 2. Next Dose: Lisinopril (lisinopril 2.5 mg oral tablet) 1 tab(s) Oral Daily. Refills: 2. Next Dose: Metformin (metFORMIN 500 mg oral tablet, extended release) 2 tab(s) Oral twice a day. Refills: 3. Next Dose: These medications were not printed or sent to your pharmacy Aspirin (aspirin buffered 81 mg oral tablet) 1 tab(s) Oral Daily for 90 Days. Refills: 3. Next Dose: Atorvastatin (Lipitor 80 mg oral tablet) 1 tab(s) Oral Daily. Refills: 3. Next Dose: Cholecalciferol (Vitamin D3) 1000 iu daily. Next Dose: Durable Medical Equipment (Accu-Chek Compact Lancets) To check fasting blood sugar daily. E11.9 DM II. Refills: 3. Next Dose: Durable Medical Equipment (One Touch Ultra 2 Glucose Meter) test sugar daily DX: E11.9. Refills: 0. Next Dose: Durable Medical Equipment (One Touch Ultra Test Strips) check sugars daily DX: E11.9. Refills: 3. Next Dose: empagliflozin (Jardiance 10 mg oral tablet) 1 tab(s) Oral Daily in the morning for 90 Days. Refills: 3. Next Dose: Allergy Info:?? NKA Medications Given This Visit Future Orders ?Hemoglobin A1C (Monitoring)? Order Date:11/23/22?- Complete on or after?11/23/22 ?Comprehensive Metabolic Panel? Order Date:11/23/22?- Complete on or after?11/23/22 ?Microalbumin Urine? Order Date:11/23/22?- Complete on or after?11/23/22 ?PSA Screen? Order Date:11/23/22?- Complete on or after?11/23/22 Vital Signs Height 190 cm Weight 81.4 kg BMI 22.55 kg/m2 Blood Pressure 111 mm Hg/70 mm Hg Temperature Pulse Rate 71 bpm Respiratory Rate 02 Sat Mode of Delivery 98 %/ You can now view a summary of your hospital visit from the comfort of your home through a free online portal called [employer]. [employer] is a website that allows you to securely view your medical information including discharge summary, medications and follow-up visits. ??You can alsosend a secure electronic message to your doctor???s office to request appointments, renew medications or just ask a question. You can enroll at [email or web address] or register during your next office visit. Disclaimer:?? The information provided is of a general nature and is intended to be used in conjunction with the recommendations and advice of your health care practitioner. ??Every effort has been made to ensure that the information provided is accurate and complete at the time it is provided to you however, as your needs change, or, as new ??information becomes available, different or additional instructions may be required. If you have questions, please consult with your primary care provider or pharmacist, as appropriate. ??This information is not intended to serve as substitution for assessment and evaluation by a qualified health care provider. If you do not have a primary care provider, you may find a [facility] provider by calling [facility] at [phone]. For information about the plan of care including goals and instructions for your diagnosis, please see the patient education orders section of this document. Patient Education Materials?? The content of this educational material or handout may have been modified, supplemented, or adapted from its original content and format to support your individualized medical care. Patient Care team information Care Team Personnel Name: Teja LEWIS, Melissa Currie [facility] Professional Member Role: PCP Address: Address: [address] [place] [address]- Name: Jordyn Bishop RN Position: [facility] RN Member Role: Primary Care Nurse Care Team Related Persons Name: CARMEN VILLASENOR Address: home [address] [place] [address]
--- OUTSIDE RECORDS SUMMARY | 2023-05-24 09:49 | XMS_ITS | Continuity of Care Document ---
Author Name Unknown Organization [facility] Tad Zach lt Address [address] [place] [address]- Care Team Providers Care Mail Processor Name Role Phone Teja LEWIS, Melissa Currie Primary Care Physician [phone] [facility]counter [facility] Date[facility]): 07/04/22 - 08/03/22 [facility] Adult [address] [place] [address]- Allergies, Adverse Reactions, Alerts No Known Allergies [...] 6 10/01/08 Gi raymond 1Result Comment: [05/15/2018] [id number] 2Result Comment: [05/04/2017] 13712-724-26 3[facility] 4Admin Note: given at [...] 02/07/22 11:21:00 EDT, Route to Pharmacy Electronically, [facility], 190, cm, 02/07/22 11:05:00 [...] 02/07/22 11:21:00 EDT, Route to Pharmacy Electronically, [facility], 190, cm, 02/07/22 11:05:00 EDT, Height Start Date: 02/07/22 Status: Ordered metFORMIN 500 mg oral tablet, extended release 2 tablet = 1,000 mg, By Mouth, 2 times a day, # 360 tablet, 3 Refills, Maintenance, 02/07/22 11:22:00 EDT, [facility], 190, cm, 02/07/22 11:05:00 [...] (LVEF ~low 20's) 2 Confirmed Active Old [place] (myocardial infarction) Confirmed Active Type 2 diabetes mellitus with other circulatory complications 3 Confirmed Active 1S/P [place]; bare metal stent to LAD 2007. 2Per cardiology notes; last echo 2013. 3Complicated by CAD/iS/P [place] 2007. Social History Social History Type Response Smoking Status Never smoker entered on: 07/03/14 Sex Patient Care team information Care Team Personnel Name: Melissa Lezama NP Position: [facility] PCO Associate Professional Member Role: PCP Address: Address: [address] [place] [address]- Name: Edna BILL, Jordyn Clark Position: [facility] PCO RN Member Role: Primary Care Nurse Care Team Related Persons Name: CARMEN VILLASENOR Address: home [address] [place] [address]
--- OUTSIDE RECORDS SUMMARY | 2023-05-24 09:49 | XMS_ITS | Continuity of Care Document ---
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) - 03/21/23 Old [place] (myocardial infarction)(Discharge Diagnosis) - 03/21/23 Annual physical exam(Discharge Diagnosis) - 03/21/23 Tinea cruris(Discharge Diagnosis) - 03/21/23 Attending Physician: Melissa Lezama NP Referring Physician: Melissa Lezama NP Allergies, Adverse Reactions, Alerts No Known Allergies Immunizations Given and Recorded Vaccine Date Status Refusal Reason tetanus-diphtheria toxoids (Td) 03/21/23 Given [id number] bivalent booster vax 06/15/22 Recorded influenza virus [...] 6 10/01/08 Gi raymond 1Result Comment: [05/15/2018] 40042-043-75 2Result Comment: [05/04/2017] [id number] 3[facility]: [facility] 4Admin Note: given at [...] 11/23/22 9:28:00 EDT, Route to Pharmacy Electronically, [facility], 190, cm, 11/23/22 8:54:00 EDT, Height Start Date: 11/23/22 Status: Ordered Jardiance 10 mg oral tablet 1 tablet = 10 mg, By Mouth, Daily in AM, # 90 tablet, 3 Refills, Maintenance, 07/05/22 8:57:00 EST,Partial fill upon patient request if the prescription is for a schedule II opioid drug. Start Date: 07/05/22 Stop Date: 06/30/23 Status: Ordered ketoconazole 2% topical cream 1 application, Topically, Daily, for 14 days, # 30 Gm, 0 Refills, Acute 04/11/23 6:49:00 EDT, 03/28/23 6:49:00 EDT, Cream, Partial fill upon patient request if the prescription is for a schedule II opioid drug. Start Date: 03/28/23 Stop Date: 04/11/23 Status: Ordered Lipitor 80 mg oral tablet [...] 11/23/22 9:28:00 EDT, Route to Pharmacy Electronically, [facility], 190, cm, 11/23/22 8:54:00 EDT, Height Start Date: 11/23/22 Status: Ordered metFORMIN 500 mg oral tablet, extended release 2 tablet = 1,000 mg, By Mouth, 2 times a day, # 360 tablet, 3 Refills, Maintenance, 11/23/22 9:28:00 EDT, [facility], 190, cm, 11/23/22 8:54:00 [...] mellitus with other circulatory complications Discharge Diagnosis 03/21/23 [place] (myocardial infarction) Discharge Diagnosis 03/21/23 Annual physical exam Discharge Diagnosis 03/21/23 Tinea cruris Discharge Diagnosis 03/21/23 Vital Signs Most recent to oldest [Reference Range]: 1 Height 190 cm (03/21/23 9:40 AM) Weight 80.8 kg (03/21/23 9:40 AM) Oxygen Saturation [94-100 %] 99 % (03/21/23 9:40 AM) Pulse Rate [55-90 bpm] 74 bpm (03/21/23 9:40 AM) Body Mass Index [18.5-24.99 kg/m2] 22.38 kg/m2 (03/21/23 9:40 AM) Blood Pressure [90-138/55-84 mm Hg] 93/5 9mm Hg (03/21/23 9:40 AM) Blood pressure sites Arm, right (03/21/23 9:40 AM) Weight Obtained Via Standing scale (03/21/23 9:40 AM) Social History Social History Type Response Smoking Status Never smoker entered on: 07/03/14 Sex Note * Karely Bhagat: PERFORM, SIGN, VERIFY Event Display: Patient Education/Instruction Authored Date: [id number] [facility] *PETRONA Reynoso Clinical Summary Name NELLA MCCOLLUM Age 62 Years 1960 PCP Teja LEWIS, Melissa Currie PCP Visit Date 03/21/2023 09:32:00 Additional Instructions: Scheduled Appointments?? Future Appointments ?*[facility] [address]??[place],??[place],??[address] ?Phone:??--?Fax:??-- ?Appt. Date:??06/08/2023?10:45 AM ?Scheduled Provider:??Ebonie Brewer MD Follow-Up Instructions ?? With: Address: When: Teja LEWIS, Melissa Currie [address] [facility] [place] [address] In 6 months Comments: long Diagnosis Encounter for general adult medical examination without abnormal findings; Tinea cruris; Old myocardial infarction; Type 2 diabetes mellitus with other circulatory complications Medications: Please continue your medications until treatment is completed or stopped by your provider. Discuss any questions related to medications with your provider. Medications to Continue with No Changes [facility], [address], [place] [id number], [phone] Atorvastatin (Lipitor 80 mg oral tablet) 1 tab(s) Oral Daily. Refills: 3. Next Dose: These medications were not printed or sent to your pharmacy Aspirin (aspirin buffered 81 mg oral tablet) 1 tab(s) Oral Daily for 90 Days. Refills: 3. Next Dose: Carvedilol (carvedilol 12.5 mg oral tablet) 1 tab(s) Oral twice a day. Refills: 2. Next Dose: Cholecalciferol (Vitamin D3) 1000 iu [...] for 90 Days. Refills: 3. Next Dose: Lisinopril (lisinopril 2.5 mg oral tablet) 1 tab(s) Oral Daily. Refills: 2. Next Dose: Metformin (metFORMIN 500 mg oral tablet, extended release) 2 tab(s) Oral twice a day. Refills: 3. Next Dose: Allergy Info:?? NKA Medications Given This Visit Future Orders ?No future orders Vital Signs Height 190 cm Weight 80.8 kg BMI 22.38 kg/m2 Blood Pressure 93 mm Hg/59 mm Hg Temperature Pulse Rate 74 bpm Respiratory Rate 02 Sat Mode of Delivery 99 %/ You can now view a summary of your hospital visit from the comfort of your home through a free online portal called [email or web address]. [email or web address] is a website that allows you to securely view your medical information including discharge summary, medications and follow-up visits. ??You can alsosend a secure electronic message to your doctor???s office to request appointments, renew medications or just ask a question. You can enroll at [email or web address] or register during your next office visit. [...] primary care provider, you may find a [facility] provider by calling [facility] [employer] [facility] at [phone]. For information about the plan of care [...] Team Personnel Name: Melissa Lezama NP Position: [facility] PCO Associate Professional Member Role: PCP Address: Address: [address] [place] [address]- Name: Jordyn Bishop RN Position: [facility] AMB Nurse Member Role: Primary Care Nurse Care Team Related Persons Name: CARMEN VILLASENOR Address: home [address] [place] [address]
--- OUTSIDE RECORDS SUMMARY | 2023-05-24 09:49 | XMS_ITS | Continuity of Care Document ---
Author Name Unknown Organization [facility] Zach lt Address [address] [place] [address]- Care Team Providers Care Automatic Line Set Up Mechanic Name Role Phone Teja LEWIS, Melissa Currie Primary Care Physician [facility] Date(s): 03/17/23 - 04/16/23 [facility] Adult [address] [place] [address]- Allergies, Adverse Reactions, Alerts No Known Allergies Immunizations Given and Recorded Vaccine Date Status Refusal Reason tetanus-diphtheria toxoids (Td) 03/21/23 Given [id number] bivalent booster vax 06/15/22 Recorded influenza virus [...] 6 10/01/08 Gi raymond 1Result Comment: [05/15/2018] [id number] 2Result Comment: [05/04/2017] [id number] 3Location History: [facility] 4Admin Note: given at [...] 11/23/22 9:28:00 EDT, Route to Pharmacy Electronically, [facility], 190, cm, 11/23/22 8:54:00 EDT, [...] 11/23/22 9:28:00 EDT, Route to Pharmacy Electronically, [facility], 190, cm, 11/23/22 8:54:00 EDT, Height Start Date: 11/23/22 Status: Ordered metFORMIN 500 mg oral tablet, extended release 2 tablet = 1,000 mg, By Mouth, 2 times a day, # 360 tablet, 3 Refills, Maintenance, 11/23/22 9:28:00 EDT, [facility], 190, cm, 11/23/22 8:54:00 EDT, [...] (LVEF ~low 20's) 2 Confirmed Active Old [place] (myocardial infarction) Confirmed Active Type 2 diabetes mellitus with other circulatory complications 3 Confirmed Active 1S/P [place]; bare metal stent to LAD 2007. 2Per cardiology notes; last echo 2013. 3Complicated by CAD/iS/P [place] 2007. Social History Social History Type Response Smoking Status Never smoker entered on: 07/03/14 Sex Patient Care team information Care Team Personnel Name: Teja LEWIS, Melissa Currie Position: [facility] PCO Associate Professional Member Role: PCP Address: Address: [address] [place] [address]- Name: Jordyn Bishop RN Position: [facility] AMB Nurse Member Role: Primary Care Nurse Care Team Related Persons Name: CARMEN VILLASENOR Address: home [address] [place] [address]
--- OUTSIDE RECORDS SUMMARY | 2023-05-24 09:49 | XMS_ITS | Continuity of Care Document ---
Author Name Unknown Organization [facility] Zach lt Address [address] [place] [address]- Care Team Providers Care Informatics Pharmacist Name Role Phone Teja LEWIS, Melissa Currie Primary Care Physician [facility] Date(s): 12/08/21 - 12/15/21 [facility] Adult [address] [place] [address]- Encounter Diagnosis COVID-19(Discharge Diagnosis) - 12/08/21 Attending Physician: Not on Staff, Attending MD [...] 6 10/01/08 Gi raymond 1Result Comment: [05/15/2018] [id number] 2Result Comment: [05/04/2017] [id number] 3Location History: [facility] 4Admin Note: given at [...] times a day, # 180 tablet, Refills 1, Tot. Refills 1, Maintenance, 09/15/21 19:29:00 EST, Route to Pharmacy Electronically, [facility], 190, cm, 07/13/21 14:45:00 EST, Height Start Date: 09/15/21 Status: Ordered Lipitor 80 mg oral tablet 1 tablet = 80 mg, By Mouth, Daily, # 90 tablet, 1 Refills, Maintenance, 09/27/21 15:13:00 EST, Tablet, [facility], 190, cm, 07/13/21 14:45:00 EST, Height Start Date: 09/27/21 Status: Ordered lisinopril 2.5 mg oral tablet 2.5 mg, 1, tablet, By Mouth, Daily, # 90 tablet, Refills 1, Tot. Refills 1, Maintenance, 09/15/21 19:23:00 EST, Route to Pharmacy Electronically, [facility], 190, cm, 07/13/21 14:45:00 EST, Height Start Date: 09/15/21 Status: Ordered metFORMIN 500 mg oral tablet, extended release 2 tablet = 1,000 mg, By Mouth, 2 times a day, # 360 tablet, 3 Refills, Maintenance, 12/08/21 11:59:00 EDT, [facility], 190, cm, 07/13/21 14:45:00 EST, Height Start Date: 12/08/21 Status: Ordered One Touch Ultra 2 Glucose [...] EDT, Height Start Date: 12/12/19 Status: Ordered Paxlovid 150 mg-100 mg oral tablet See Instructions, follow package instructions, # 30 tablet, 0 Refills, Maintenance, 12/08/21 14:08:00 EDT, [id number], not renally impaired, follow package instructions, 190, cm, 07/13/21 14:45:00 EST, Height Start Date: 12/08/21 Status: Ordered Vitamin D3 See Instructions, 1000 iu daily, 0 Refills, Maintenance, 10/20/16 13:57:05 Start Date: 10/20/16 Status: Ordered Problem List Condition Effective Dates Status Health Status Inform ant Acute myocardial infarction(Confirmed) Active Coronary artery disease(Confirmed) Active Diabetes mellitus type 2(Confirmed) Active Hodgkin lymphoma(Confirmed) 11/21/84 Active Malignant melanoma of skin(Confirmed) 01/21/15 Active Diagnosis Diagnosis Type Effective Dates Health Status Clini rupal Service Informant COVID-19 Discharge Diagnosis 12/08/21 Social History Social History Type Response Smoking Status Never smoker entered on: 07/03/14 Sex
--- OUTSIDE RECORDS SUMMARY | 2023-05-24 09:49 | XMS_ITS | Continuity of Care Document ---
Author Name Unknown Organization [facility] Address [address] [place] [address]- Care Team Providers Care Venereal Disease Investigator Name Role Phone Teja LEWIS, Melissa Currie Primary Care Physician Encounter [facility] Date(s): 02/20/20 - 03/21/20 [facility] [address] [place] [address]- [facility] Attending Physician: Ish Dominguez Admitting Physician: Ish Dominguez Referring Physician: AdmtrIsh Allergies, Adverse Reactions, Alerts [...] 6 10/01/08 Gi raymond 1Result Comment: [05/15/2018] [id number] 2Result Comment: [05/04/2017] [id number] 3Location History: [facility] 4Admin Note: given at [...] 03/09/20 21:20:00 EDT, Route to Pharmacy Electronically, [facility], 190, cm, 12/20/19 9:27:00 EDT, Height Start Date: 03/09/20 Status: Ordered Lipitor 80 mg oral tablet 1 tablet = 80 mg, By Mouth, Daily, # 90 tablet, 3 Refills, Maintenance, 03/09/20 21:25:00 EDT, Tablet, [facility], 190, cm, 12/20/19 9:27:00 EDT, Height Start Date: 03/09/20 Status: Ordered lisinopril 2.5 mg oral tablet 2.5 mg, 1, tablet, By Mouth, Daily, # 90 tablet, Refills 3, Tot. Refills 3, Maintenance, 03/09/20 21:19:00 EDT, Route to Pharmacy Electronically, [facility], 190, cm, 12/20/19 9:27:00 EDT,Height Start Date: 03/09/20 Status: Ordered metFORMIN 500 mg oral tablet, extended release 2 tablet = 1,000 mg, By Mouth, 2 times a day, # 360 tablet, 3 Refills, Maintenance, 12/20/19 11:01:00 EDT, [facility], 190, cm, 12/20/19 9:27:00 [...]
--- OUTSIDE RECORDS SUMMARY | 2023-05-24 09:49 | XMS_ITS | Continuity of Care Document ---
Author Name Unknown Organization [facility] Address [address] [place] [address]- Care Team Providers Care Crester Name Role Phone Teja LEWIS, Melissa Currie Primary Care Physician Encounter [facility] Date(s): 06/09/22 - 07/09/22 [facility] [address] [place] [address]- Attending Physician: Ish Dominguez Admitting Physician: AdmtrIsh Referring Physician: Admtr, Ar8 Allergies, Adverse Reactions, Alerts No Known Allergies [...] 6 10/01/08 Gi raymond 1Result Comment: [05/15/2018] [id number] 2Result Comment: [05/04/2017] [id number] 3Location History: [facility] 4Admin Note: given at [...] 02/07/22 11:21:00 EDT, Route to Pharmacy Electronically, [facility], 190, cm, 02/07/22 11:05:00 [...] 02/07/22 11:21:00 EDT, Route to Pharmacy Electronically, [facility], 190, cm, 02/07/22 11:05:00 EDT, Height Start Date: 02/07/22 Status: Ordered metFORMIN 500 mg oral tablet, extended release 2 tablet = 1,000 mg, By Mouth, 2 times a day, # 360 tablet, 3 Refills, Maintenance, 02/07/22 11:22:00 EDT, [facility], 190, cm, 02/07/22 11:05:00 [...] (LVEF ~low 20's) 2 Confirmed Active Old [place] (myocardial infarction) Confirmed Active Type 2 diabetes mellitus with other circulatory complications 3 Confirmed Active 1S/P [place]; bare metal stent to LAD 2007. 2Per cardiology notes; last echo 2013. 3Complicated by CAD/iS/P [place] 2007. Social History Social History Type Response Smoking Status Never smoker entered on: 07/03/14 Sex Patient Care team information Care Team Personnel Name: Melissa Lezama NP Position: [facility]O Associate Professional Member Role: PCP Address: Address: [address] [place] [address]- Name: Edna BILL, Jordyn Clark Position: [facility] PCO RN Member Role: Primary Care Nurse Care Team Related Persons Name: CARMEN VILLASENOR Address: home [address] [place] [address] MIGEL KUNZ [address]
--- OUTSIDE RECORDS SUMMARY | 2023-05-24 09:49 | XMS_ITS | Continuity of Care Document ---
Author Name Unknown Organization [facility] Tad Zach lt Address [address] [place] [address]- Care Team Providers Care Cone Machine Operator Name Role Phone Teja LEWIS, Melissa Currie Primary Care Physician [facility] Date(s): 12/08/21 - 01/07/22 [facility] Adult [address] [place] [address]- Allergies, Adverse Reactions, Alerts No Known Allergies [...] 6 10/01/08 Gi raymond 1Result Comment: [05/15/2018] [id number] 2Result Comment: [05/04/2017] [id number] 3Location History: [facility] 4Admin Note: given at [...] 09/15/21 19:29:00 EST, Route to Pharmacy Electronically, [facility], 190, cm, 07/13/21 14:45:00 EST, Height Start Date: 09/15/21 Status: Ordered Lipitor 80 mg oral tablet 1 tablet = 80 mg, By Mouth, Daily, # 90 tablet, 1 Refills, Maintenance, 09/27/21 15:13:00 EST, Tablet, [facility], 190, cm, 07/13/21 14:45:00 EST, Height Start Date: 09/27/21 Status: Ordered lisinopril 2.5 mg oral tablet 2.5 mg, 1, tablet, By Mouth, Daily, # 90 tablet, Refills 1, Tot. Refills 1, Maintenance, 09/15/21 19:23:00 EST, Route to Pharmacy Electronically, [facility], 190, cm, 07/13/21 14:45:00 EST, [...]
--- OUTSIDE RECORDS SUMMARY | 2023-05-24 09:49 | XMS_ITS | Continuity of Care Document ---
Author Name Unknown Organization [facility] Adán Mishra Zach lt Address [address] [place] [address]- Care Team Providers Care Benefit Director Name Role Phone Teja LEWIS, Melissa Currie Primary Care Physician Encounter [facility] Date(s): 11/24/20 - 12/01/20 [facility] Adult [address] [place] [address]- Encounter Diagnosis Diabetes mellitus type 2(Discharge Diagnosis) - 11/24/20 Acute myocardial infarction(Discharge Diagnosis) - 11/24/20 Malignant melanoma of skin(Discharge Diagnosis) - 11/24/20 Hodgkin lymphoma(Discharge Diagnosis) - 11/24/20 Tendonitis of elbow, left(Discharge Diagnosis) - 11/24/20 Annual physical exam(Discharge Diagnosis) - 11/24/20 Attending Physician: Teja LEWIS, Melissa Currie Allergies, Adverse Reactions, Alerts Substance Reaction Severity [...] 6 10/01/08 Gi raymond 1Result Comment: [05/15/2018] [id number] 2Result Comment: [05/04/2017] [id number] 3Location History: [facility] 4Admin Note: given at [...] 11/30/20 14:17:00 EDT, Route to Pharmacy Electronically, [facility], 190, cm, 11/24/20 13:50:00 [...] 03/09/20 21:19:00 EDT, Route to Pharmacy Electronically, [facility], 190, cm, 12/20/19 9:27:00 EDT,Height Start Date: 03/09/20 Status: Ordered metFORMIN 500 mg oral tablet, extended release 2 tablet = 1,000 mg, By Mouth, 2 times a day, # 360 tablet, 3 Refills, Maintenance, 11/24/20 14:13:00 EDT, [facility], 190, cm, 11/24/20 13:50:00 [...] Effective Dates Health Status Clinical Service Informant Diabetes mellitus type 2 Discharge Diagnosis 11/24/20 Acute myocardial infarction Discharge Diagnosis 11/24/20 Malignant melanoma of skin Discharge Diagnosis 11/24/20 Hodgkin lymphoma Discharge Diagnosis 11/24/20 Tendonitis of elbow, left Discharge Diagnosis 11/24/20 Annual physical exam Discharge Diagnosis 11/24/20 Vital Signs Most recent to oldest [Reference Range]: 1 Height 190 cm (11/24/20 1:50 PM) Weight 85.2 kg (11/24/20 1:50 PM) Oxygen Saturation [94-100 %] 99 % (11/24/20 1:50 PM) Pulse Rate [55-90 bpm] 74 bpm (11/24/20 1:50 PM) Body Mass Index [18.5-24.99] 23.6 (11/24/20 1:50 PM) Blood Pressure [90-138/55-84 mm Hg] 108/ 68mm Hg (11/24/20 1:50 PM) Temperature [96.8-100.4 DegF] 97.8 DegF (11/24/20 1:50 PM) Blood pressure sites Arm, right (11/24/20 1:50 PM) Temperature Route Oral (11/24/20 1:50 PM) Weight Obtained Via Standing scale (11/24/20 1:50 PM) Social History Social History Type Response Smoking Status Never smoker entered on: 07/03/14 Sex
--- OUTSIDE RECORDS SUMMARY | 2023-05-24 09:49 | XMS_ITS | Continuity of Care Document ---
Author Name Unknown Organization [facility] Tad Zach lt Address [address] [place] [address]- Care Team Providers Care Customs And Border Protection Officer Name Role Phone Teja LEWIS, Melissa Currie Primary Care Physician [facility] Date(s): 01/28/22 - 02/27/22 [facility] [place] Adult [address] [place] [address]- Allergies, Adverse Reactions, Alerts No Known Allergies [...] 6 10/01/08 Gi raymond 1Result Comment: [05/15/2018] [id number] 2Result Comment: [05/04/2017] [id number] 3[facility]: [facility] 4Admin Note: given at [...] 02/07/22 11:21:00 EDT, Route to Pharmacy Electronically, [facility], 190, cm, 02/07/22 11:05:00 [...] 02/07/22 11:21:00 EDT, Route to Pharmacy Electronically, [facility], 190, cm, 02/07/22 11:05:00 EDT, Height Start Date: 02/07/22 Status: Ordered metFORMIN 500 mg oral tablet, extended release 2 tablet = 1,000 mg, By Mouth, 2 times a day, # 360 tablet, 3 Refills, Maintenance, 02/07/22 11:22:00 EDT, [facility], 190, cm, 02/07/22 11:05:00 [...]
--- OUTSIDE RECORDS SUMMARY | 2023-05-24 09:49 | XMS_ITS | Continuity of Care Document ---
Author Name Unknown Organization [facility] Zach lt Address [address] [place] [address]- Care Team Providers Care Dairy Husbandry Worker Name Role Phone Teja LEWIS, Melissa Currie Primary Care Physician [facility] Date(s): 07/06/21 - 08/05/21 [facility] Adult [address] [place] [address]- Allergies, Adverse Reactions, Alerts Substance Reaction Severity [...] 6 10/01/08 Gi raymond 1Result Comment: [05/15/2018] [id number] 2Result Comment: [05/04/2017] [id number] 3[facility]: [facility] 4Admin Note: given at [...] 03/15/21 18:07:00 EDT, Route to Pharmacy Electronically, [facility], 190, cm, 11/24/20 13:50:00 EDT, Height Start Date: 03/15/21 Status: Ordered metFORMIN 500 mg oral tablet, extended release 2 tablet = 1,000 mg, By Mouth, 2 times a day, # 360 tablet, 3 Refills, Maintenance, 11/24/20 14:13:00 EDT, [facility], 190, cm, 11/24/20 13:50:00 EDT, [...]
--- OUTSIDE RECORDS SUMMARY | 2023-05-24 09:50 | XMS_ITS | Continuity of Care Document ---
Author Name Unknown Organization [facility] Adán Mishra Zach lt Address [address] [place] [address]- Care Team Providers Care Dinkey Driver Name Role Phone Teja LEWIS, Melissa Currie Primary Care Physician [phone] [facility]counter [facility] Date(s): 05/06/22 - 06/05/22 [facility] Adult [address] [place] [address]- Allergies, Adverse Reactions, Alerts No Known Allergies [...] 6 10/01/08 Gi raymond 1Result Comment: [05/15/2018] 14789-326-23 2Result Comment: [05/04/2017] [id number] 3[facility] 4Admin Note: given at [...] 02/07/22 11:21:00 EDT, Route to Pharmacy Electronically, [facility], 190, cm, 02/07/22 11:05:00 [...] 02/07/22 11:21:00 EDT, Route to Pharmacy Electronically, [facility], 190, cm, 02/07/22 11:05:00 EDT, Height Start Date: 02/07/22 Status: Ordered metFORMIN 500 mg oral tablet, extended release 2 tablet = 1,000 mg, By Mouth, 2 times a day, # 360 tablet, 3 Refills, Maintenance, 02/07/22 11:22:00 EDT, [facility], 190, cm, 02/07/22 11:05:00 [...] List Condition Confirmation Course Effective Dates Status Health St atus Informant Acute myocardial infarction Confirmed Active Coronary artery disease Confirmed Active Diabetes mellitus type 2 Confirmed Active History of Hodgkin's lymphoma Confirmed Active Malignant melanoma of skin Confirmed 01/21/15 Active Social History Social History Type Response Smoking Status Never smoker entered on: 07/03/14 Sex Patient Care team information Personnel Name: Teja LEWIS, Melissa Currie Address: Address: [address] [place], [place] [address]
--- OUTSIDE RECORDS SUMMARY | 2023-05-24 09:50 | XMS_ITS | Continuity of Care Document ---
Author Name Unknown Organization [facility] Tad Zach lt Address [address] [place] [address]- Care Team Providers Care Supervisor Maintenance Name Role Phone Teja LEWIS, Melissa Currie Primary Care Physician Encounter [facility] Date(s): 12/20/19 - 12/27/19 [facility] Adult [address] [place] [address]- [facility] Encounter Diagnosis Tinea pedis of both feet(Discharge Diagnosis) - 12/20/19 Diabetes mellitus type 2(Discharge Diagnosis) - 12/20/19 Attending Physician: Teja LEWIS, Melissa Currie Allergies, [...] 6 10/01/08 Gi raymond 1Result Comment: [05/15/2018] 61623-048-78 2Result Comment: [05/04/2017] 49065-921-58 3[facility] History: [facility] 4Admin Note: given at [...] tablet, Refills 3, Tot. Refills 3, Maintenance, 02/21/19 11:56:39 EDT, Print Requisition Start Date: 02/21/19 Status: Ordered ketoconazole 2% topical cream 1 application, Topically, Daily, for 6 week(s), # 60 Gm, 1 Refills, Acute 02/24/20 9:39:00 EDT, 12/02/19 9:39:00 EDT, Cream, [facility], 1 application Topically Daily,x6 week(s), 190, cm, 04/30/19 14:53:00 EDT, Height Start Date: 12/02/19 Stop Date: 02/24/20 Status: Ordered Lipitor 80 mg oral tablet 1 tablet = 80 mg, By Mouth, Daily, # 90 tablet, 3 Refills, Maintenance, 04/06/19 13:13:45 EDT, Tablet Start Date: 04/06/19 Status: Ordered lisinopril 2.5 mg oral tablet 2.5 mg, 1, tablet, By Mouth, Daily, # 90 tablet, Refills 3, Tot. Refills 3, Maintenance, 02/21/19 11:56:19 EDT, Print Requisition Start Date: 02/21/19 Status: Ordered metFORMIN 500 mg oral tablet, extended release 2 tablet = 1,000 mg, By Mouth, 2 times a day, # 360 tablet, 3 Refills, Maintenance, 12/20/19 11:01:00 EDT, [facility], 190, cm, 12/20/19 9:27:00 [...] Dates Health Status Cl inical Service Informant Tinea pedis of both feet Discharge Diagnosis 12/20/19 Diabetes mellitus type 2 Discharge Diagnosis 12/20/19 Vital Signs Most recent to oldest [Reference Range]: 1 Height 190 cm (12/20/19 9:27 AM) Social History Social History Type Response Smoking Status Never smoker entered on: 07/03/14 Sex
--- OUTSIDE RECORDS SUMMARY | 2023-05-24 09:50 | XMS_ITS | Continuity of Care Document ---
Author Name Unknown Organization [facility] Tad Zach lt Address [address] [place] [address]- Care Team Providers Care Healthcare Economics Consultant Name Role Phone Teja LEWIS, Melissa Currie Primary Care Physician [facility] Date(s): 11/17/20 - 12/17/[facility] Adult [address] [place] [address]- Allergies, Adverse Reactions, Alerts Substance Reaction Severity [...] 6 10/01/08 Gi raymond 1Result Comment: [05/15/2018] [id number] 2Result Comment: [05/04/2017] 39273-879-33 3Location History: [facility] 4Admin Note: given at [...] 11/30/20 14:17:00 EDT, Route to Pharmacy Electronically, [facility], 190, cm, 11/24/20 13:50:00 [...] 03/09/20 21:19:00 EDT, Route to Pharmacy Electronically, [facility], 190, cm, 12/20/19 9:27:00 EDT,Height Start Date: 03/09/20 Status: Ordered metFORMIN 500 mg oral tablet, extended release 2 tablet = 1,000 mg, By Mouth, 2 times a day, # 360 tablet, 3 Refills, Maintenance, 11/24/20 14:13:00 EDT, [facility], 190, cm, 11/24/20 13:50:00 [...]
--- OUTSIDE RECORDS SUMMARY | 2023-05-24 09:50 | XMS_ITS | Continuity of Care Document ---
Author Name Unknown Organization [facility] Adán Mishra Zach lt Address [address] [place] [address]- Care Team Providers Care Electricity Trading Analyst Name Role Phone Teja LEWIS, Melissa Currie Primary Care Physician [phone] Encounter [facility] Date(s): 12/20/19 - 01/19/20 [facility] Adult [address] [place] [address]- [facility] Attending Physician: Admtr, Phillip8 Admitting Physician: AdmtrIsh Referring Physician: Admtr, Ar8 Allergies, Adverse Reactions, Alerts Substance Reaction Severity [...] 6 10/01/08 Gi raymond 1Result Comment: [05/15/2018] [id number] 2Result Comment: [05/04/2017] [id number] 3Location History: [facility] 4Admin Note: given at [...] 02/24/20 9:39:00 EDT, 12/02/19 9:39:00 EDT, Cream, [facility], 1 application Topically Daily,x6 week(s), [...] tablet, 3 Refills, Maintenance, 12/20/19 11:01:00 EDT, [facility], 190, cm, 12/20/19 9:27:00 EDT, [...]
--- OUTSIDE RECORDS SUMMARY | 2023-05-24 09:50 | XMS_ITS | Continuity of Care Document ---
Author Name Unknown Organization [facility] Zach [facility] Address [address] [place] [address]- Care Team Providers Care Perianesthesia Manager Name Role Phone Teja LEWIS, Melissa Currie Primary Care Physician [facility] Date(s): 09/27/21 - 10/27/21 [facility] [place] Adult [address] [place] [address]- Allergies, Adverse Reactions, Alerts No Known Allergies [...] 6 10/01/08 Gi raymond 1Result Comment: [05/15/2018] [id number] 2Result Comment: [05/04/2017] [id number] 3Location History: [facility] 4Admin Note: [facility]13 5Admin Note: charted for alicia 6Admin Note: [...] 09/15/21 19:29:00 EST, Route to Pharmacy Electronically, [facility], 190, cm, 07/13/21 [...] 09/15/21 19:23:00 EST, Route to Pharmacy Electronically, [facility], 190, cm, 07/13/21 14:45:00 EST, Height Start Date: 09/15/21 Status: Ordered metFORMIN 500 mg oral tablet, extended release 2 tablet = 1,000 mg, By Mouth, 2 times a day, # 360 tablet, 3 Refills, Maintenance, 11/24/20 14:13:00 EDT, [facility], 190, cm, 11/24/20 13:50:00 [...]
--- OUTSIDE RECORDS SUMMARY | 2023-05-24 09:50 | XMS_ITS | Continuity of Care Document ---
Author Name Unknown Organization [facility] Tad Zach lt Address [address] [place] [address]- Care Team Providers Care Box Machine Operator Name Role Phone Teja LEWIS, Melissa Currie Primary Care Physician En[place] [facility] Date(s): 03/09/20 - 04/08/20 [facility] Adult [address] [place] [address]- [facility] Allergies, Adverse Reactions, Alerts Substance Reaction Severity [...] 6 10/01/08 Gi raymond 1Result Comment: [05/15/2018] [id number] 2Result Comment: [05/04/2017] [id number] 3Location History: [facility] 4Admin Note: given at [...] 03/09/20 21:20:00 EDT, Route to Pharmacy Electronically, [facility], 190, cm, 12/20/19 9:27:00 EDT, Height Start Date: 03/09/20 Status: Ordered Lipitor 80 mg oral tablet 1 tablet = 80 mg, By Mouth, Daily, # 90 tablet, 3 Refills, Maintenance, 03/09/20 21:25:00 EDT, Tablet, [facility], 190, cm, 12/20/19 9:27:00 EDT, Height Start Date: 03/09/20 Status: Ordered lisinopril 2.5 mg oral tablet 2.5 mg, 1, tablet, By Mouth, Daily, # 90 tablet, Refills 3, Tot. Refills 3, Maintenance, 03/09/20 21:19:00 EDT, Route to Pharmacy Electronically, [facility], 190, cm, 12/20/19 9:27:00 EDT,Height Start Date: 03/09/20 Status: Ordered metFORMIN 500 mg oral tablet, extended release 2 tablet = 1,000 mg, By Mouth, 2 times a day, # 360 tablet, 3 Refills, Maintenance, 12/20/19 11:01:00 EDT, [facility], 190, cm, 12/20/19 9:27:00 EDT, [...]
--- OUTSIDE RECORDS SUMMARY | 2023-05-24 09:50 | XMS_ITS | Continuity of Care Document ---
Author Name Unknown Organization [facility] [place] Zach lt Address [address] [place] [address]- Care Team Providers Care Players Assistant Name Role Phone Teja LEWIS, Melissa Currie Primary Care Physician [phone] Encounter [facility] Date(s): 12/10/20 - 01/09/21 [facility] [place] Adult [address] [place] [address]- Allergies, Adverse Reactions, Alerts Substance Reaction Severity [...] 6 10/01/08 Gi raymond 1Result Comment: [05/15/2018] [id number] 2Result Comment: [05/04/2017] [id number] 3Location History: [facility] 4Admin Note: given at [...] 14:17:00 EDT, Route to Pharmacy Electronically, [facility], 190, cm, 11/24/20 [...] 21:19:00 EDT, Route to Pharmacy Electronically, [facility], 190, cm, 12/20/19 9:27:00 EDT,Height Start Date: 03/09/20 Status: Ordered metFORMIN 500 mg oral tablet, extended release 2 tablet = 1,000 mg, By Mouth, 2 times a day, # 360 tablet, 3 Refills, Maintenance, 11/24/20 14:13:00 EDT, [facility], 190, cm, 11/24/20 [...]
--- OUTSIDE RECORDS SUMMARY | 2023-05-24 09:50 | XMS_ITS | Continuity of Care Document ---
Author Name Unknown Organization [facility] Address [address] [place] [address]- Care Team Providers Care Robotic Weld Technician Name Role Phone Teja LEWIS, Melissa Currie Primary Care Physician [facility] Date(s): 03/14/22 - 04/13/22 [facility] [address] [place] [address]- Allergies, Adverse Reactions, Alerts No Known Allergies [...] 6 10/01/08 Gi raymond 1Result Comment: [05/15/2018] [id number] 2Result Comment: [05/04/2017] [id number] 3Location History: [facility] 4Admin Note: given at [...] 02/07/22 11:21:00 EDT, Route to Pharmacy Electronically, [facility], 190, cm, 02/07/22 11:05:00 EDT, [...] 02/07/22 11:21:00 EDT, Route to Pharmacy Electronically, [facility], 190, cm, 02/07/22 11:05:00 EDT, Height Start Date: 02/07/22 Status: Ordered metFORMIN 500 mg oral tablet, extended release 2 tablet = 1,000 mg, By Mouth, 2 times a day, # 360 tablet, 3 Refills, Maintenance, 02/07/22 11:22:00 EDT, [facility], 190, cm, 02/07/22 11:05:00 EDT, [...] Status Never smoker entered on: 07/03/14 Sex Care Team Personnel Name: Teja LEWIS, Melissa Currie Address: [address] [place] [id number]
--- OUTSIDE RECORDS SUMMARY | 2023-05-24 09:51 | XMS_ITS | Continuity of Care Document ---
Author Name Unknown Organization [facility] Tad Zach lt Address [address] [place] [address]- Care Team Providers Care Digital Production Manager Name Role Phone Teja LEWIS, Melissa Currie Primary Care Physician [facility] Date(s): 05/31/22 - 06/30/22 [facility] Adult [address] [place] [address]- Allergies, Adverse Reactions, Alerts No Known Allergies [...] 6 10/01/08 Gi raymond 1Result Comment: [05/15/2018] [id number] 2Result Comment: [05/04/2017] [id number] 3Location History: [facility] 4Admin Note: given at [...] 02/07/22 11:21:00 EDT, Route to Pharmacy Electronically, [facility], 190, cm, 02/07/22 11:05:00 [...] 02/07/22 11:21:00 EDT, Route to Pharmacy Electronically, [facility]278, 190, cm, 02/07/22 11:05:00 EDT, Height Start Date: 02/07/22 Status: Ordered metFORMIN 500 mg oral tablet, extended release 2 tablet = 1,000 mg, By Mouth, 2 times a day, # 360 tablet, 3 Refills, Maintenance, 02/07/22 11:22:00 EDT, [facility], 190, cm, 02/07/22 11:05:00 [...] (LVEF ~low 20's) 2 Confirmed Active Old [place] (myocardial infarction) Confirmed Active Type 2 diabetes mellitus with other circulatory complications 3 Confirmed Active 1S/P GA; bare metal stent to LAD 2007. 2Per cardiology notes; last echo 2013. 3Complicated by CAD/iS/P GA 2007. Social History Social History Type Response Smoking Status Never smoker entered on: 07/03/14 Sex Patient Care team information Care Team Personnel Name: Melissa Lezama NP Position: S PCO Associate Professional Member Role: PCP Address: Address: [address] [place] [address]- Name: Edna BILL, Jordyn Clark Position: [facility] PCO RN Member Role: Primary Care Nurse Care Team Related Persons Name: CARMEN VILLASENOR Address: home [address] [place] [id number]
--- OUTSIDE RECORDS SUMMARY | 2023-05-24 09:51 | XMS_ITS | Continuity of Care Document ---
Author Name Unknown Organization [facility] Tad Zach lt Address [address] [place] [address]- Care Team Providers Care Supervisor Plastering Name Role Phone Teja LEWIS, Melissa Currie Primary Care Physician [place] [facility] [place] 12/26/18 - 08/01/19 [facility] Adult [address] [place] [address]- [facility] Attending Physician: Melissa Lezama NP Allergies, Adverse [...] 6 10/01/08 Gi raymond 1Result Comment: [05/15/2018] [id number] 2Result Comment: [05/04/2017] [id number] 3Location History: [facility] 4Admin Note: [facility]13 5Admin Note: charted for alicia 6Admin Note: charted for alicia Medications aspirin buffered 81 mg oral tablet 1 [...] Print Requisition Start Date: 02/21/19 Status: Ordered Lipitor 80 mg oral tablet 1 tablet = 80 mg, By Mouth, Daily, # 90 tablet, 3 Refills, Maintenance, 04/06/19 13:13:45 EDT, Tablet Start Date: 04/06/19 Status: Ordered lisinopril 2.5 mg oral tablet 2.5 mg, 1, tablet, By Mouth, Daily, # 90 tablet, Refills 3, Tot. Refills 3, Maintenance, 02/21/19 11:56:19 EDT, Print Requisition Start Date: 02/21/19 Status: Ordered metFORMIN 1000 mg oral tablet 1 tablet = 1,000 mg, By Mouth, 2 times a day, # 180 tablet, 3 Refills, Maintenance, 02/21/19 11:56:38 EDT, Tablet, replace 500mg BID Start Date: 02/21/19 Status: Ordered Vitamin D3 See Instructions, 1000 [...]
--- OUTSIDE RECORDS SUMMARY | 2023-05-24 09:51 | XMS_ITS | Continuity of Care Document ---
Author Name Unknown Organization [facility] Zach lt Address [address] [place] [address]- Care Team Providers Care Hematology Nurse Educator Name Role Phone Teja LEWIS, Melissa Currie Primary Care Physician [phone] [facility] Date(s): 11/22/21 - 12/22/21 [facility] Adult [address] [place] [address]- Allergies, Adverse Reactions, Alerts No Known Allergies [...] 6 10/01/08 Gi raymond 1Result Comment: [05/15/2018] [id number] 2Result Comment: [05/04/2017] [id number] 3Location History: [facility] 4Admin Note: given at [...] 09/15/21 19:29:00 EST, Route to Pharmacy Electronically, [facility], 190, cm, 07/13/21 14:45:00 [...] 09/15/21 19:23:00 EST, Route to Pharmacy Electronically, [facility]278, 190, cm, 07/13/21 14:45:00 [...]
--- OUTSIDE RECORDS SUMMARY | 2023-05-24 09:51 | XMS_ITS | Continuity of Care Document ---
Author Name Unknown Organization [facility] Tad Zach lt Address [address] [place] [address]- Care Team Providers Care Airplane Patrol Pilot Name Role Phone Teja LEWIS, Melissa Currie Primary Care Physician [facility] Date(s): 11/16/22 - 12/16/22 [facility] Adult [address] [place] [address]- Allergies, Adverse Reactions, Alerts No Known Allergies [...] 6 10/01/08 Gi raymond 1Result Comment: [05/15/2018] [id number] 2Result Comment: [05/04/2017] [id number] 3Location History: [facility] 4Admin Note: given at [...] 11/23/22 9:28:00 EDT, Route to Pharmacy Electronically, [facility], 190, cm, 11/23/22 8:54:00 [...] 11/23/22 9:28:00 EDT, Route to Pharmacy Electronically, [facility], 190, cm, 11/23/22 8:54:00 EDT, Height Start Date: 11/23/22 Status: Ordered metFORMIN 500 mg oral tablet, extended release 2 tablet = 1,000 mg, By Mouth, 2 times a day, # 360 tablet, 3 Refills, Maintenance, 11/23/22 9:28:00 EDT, [facility], 190, cm, 11/23/22 8:54:00 [...] (LVEF ~low 20's) 2 Confirmed Active 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 2Per cardiology notes; last echo 2013. 3Complicated by CAD/iS/P [place] 2007. Social History Social History Type Response Smoking Status Never smoker entered on: 07/03/14 Sex Patient Care team information Care Team Personnel Name: Melissa Lezama NP Position: S PCO Associate Professional Member Role: PCP Address: Address: [address] [place] [address]- Name: Edna BILL, Jordyn Clark Position: [facility] PCO RN Member Role: Primary Care Nurse Care Team Related Persons Name: CARMEN VILLASENOR Address: home [address] [place] [address]
--- OUTSIDE RECORDS SUMMARY | 2023-05-24 09:51 | XMS_ITS | Continuity of Care Document ---
Author Name Unknown Organization [facility] Zach lt Address [address] [place] [address]- Care Team Providers Care Culinary Arts Teacher Name Role Phone Teja LEWIS, Melissa Currie Primary Care Physician [phone] [facility]counter [facility] Date(s): 02/11/22 - 06/11/22 [facility] Adult [address] [place] [address]- Attending Physician: Teja LEWIS, Melissa Currie Referring Physician: El Paz MD Allergies, Adverse Reactions, Alerts No Known [...] 6 10/01/08 Gi raymond 1Result Comment: [05/15/2018] [id number] 2Result Comment: [05/04/2017] [id number] 3Location History: [facility] 4Admin Note: given at [...] 02/07/22 11:21:00 EDT, Route to Pharmacy Electronically, [facility], 190, cm, 02/07/22 [...] 02/07/22 11:21:00 EDT, Route to Pharmacy Electronically, [facility], 190, cm, 02/07/22 11:05:00 EDT, Height Start Date: 02/07/22 Status: Ordered metFORMIN 500 mg oral tablet, extended release 2 tablet = 1,000 mg, By Mouth, 2 times a day, # 360 tablet, 3 Refills, Maintenance, 02/07/22 11:22:00 EDT, [facility], 190, cm, 02/07/22 [...] (LVEF ~low 20's) 2 Confirmed Active Old [place] (myocardial infarction) Confirmed Active Type 2 diabetes mellitus with other circulatory complications 3 Confirmed Active 1S/P [place]; bare metal stent to LAD 2007. 2Per cardiology notes; last echo 2013. 3Complicated by CAD/iS/P [place] 2007. Social History Social History Type Response Smoking Status Never smoker entered on: 07/03/14 Sex Patient Care team information Care Team Personnel Name: Melissa Lezama NP Position: S PCO Associate Professional Member Role: PCP Address: Address: [address] [place] [address]- Name: Jordyn Bishop RN Position: [facility] PCO RN Member Role: Primary Care Nurse Care Team Related Persons Name: CARMEN VILLASENOR Address: home [address] [place] [address]
--- OUTSIDE RECORDS SUMMARY | 2023-05-24 09:51 | XMS_ITS | Continuity of Care Document ---
Author Name Unknown Organization [facility] Tad Zach lt Address [address] [place] [address]- Care Team Providers Care Haulage Boss Name Role Phone Teja LEWIS, Melissa Currie Primary Care Physician [facility] Date(s): 07/13/21 - 08/12/21 [facility] Adult [address] [place] [address]- Attending Physician: AdmIsh armijo Admitting Physician: AdmtrIsh Referring Physician: Admtr, Ar8 [...] 6 10/01/08 Gi raymond 1Result Comment: [05/15/2018] [id number] 2Result Comment: [05/04/2017] [id number] 3Location History: [facility] 4Admin Note: given at [...] 03/15/21 18:07:00 EDT, Route to Pharmacy Electronically, [facility], 190, cm, 11/24/20 13:50:00 EDT, Height Start Date: 03/15/21 Status: Ordered metFORMIN 500 mg oral tablet, extended release 2 tablet = 1,000 mg, By Mouth, 2 times a day, # 360 tablet, 3 Refills, Maintenance, 11/24/20 14:13:00 EDT, [facility], 190, cm, 11/24/20 13:50:00 [...] cm, 04/30/19 14:53:00 EDT, Height Start Date: 5/14/20 Status: Ordered Vitamin D3 See Instructions, 1000 [...]
--- OUTSIDE RECORDS SUMMARY | 2023-05-24 09:51 | XMS_ITS | Continuity of Care Document ---
Author Name Unknown Organization [facility] Tad Zach lt Address [address] [place] [address]- Care Team Providers Care Employment Trainer Name Role Phone Teja LEWIS, Melissa Currie Primary Care Physician Encounter [facility] Date(s): 11/21/19 - 11/28/19 [facility] Adult [address] [place] [address]- [facility] Encounter Diagnosis Tinea pedis(Discharge Diagnosis) - 11/21/19 Diabetes mellitus type 2(Discharge Diagnosis) - 11/21/19 Attending Physician: Jackosn CHRISTIANSEN, El Eduardo Allergies, Adverse Reactions, Alerts Substance Reaction Severity [...] 6 10/01/08 Gi raymond 1Result Comment: [05/15/2018] [id number] 2Result Comment: [05/04/2017] 13422-502-23 3Location History: [facility] 4Admin Note: given at [...] 02/21/19 Status: Ordered metFORMIN 500 mg oral tablet 1 tablet = 500 mg, By Mouth, 2 times a day, # 180 tablet, 0 Refills, Maintenance, 11/21/19 10:52:00EDT, Tablet Start Date: 11/21/19 Status: Ordered Vitamin D3 See Instructions, 1000 [...] Status Cl inical Service Informant Tinea pedis Discharge Diagnosis 11/21/19 Diabetes mellitus type 2 Discharge Diagnosis 11/21/19 Social History Social History Type Response Smoking Status Never smoker entered on: 07/03/14 Sex
--- OUTSIDE RECORDS SUMMARY | 2023-05-24 09:51 | XMS_ITS | Continuity of Care Document ---
Author Name Unknown Organization [facility] Zach lt Address [address] [place] [address]- Care Team Providers Care Welder 2Nd Shift Name Role Phone Teja LEWIS, Melissa Currie Primary Care Physician [phone] [facility]counter [facility] Date(s): 02/25/21 - 06/25/21 [facility] Adult [address] [place] [address]- Attending Physician: Teja LEWIS, Melissa Currie Referring [...] 6 10/01/08 Gi raymond 1Result Comment: [05/15/2018] [id number] 2Result Comment: [05/04/2017] [id number] 3Location [facility]: [facility] 4Admin Note: given at [...] 03/15/21 18:07:00 EDT, Route to Pharmacy Electronically, [facility], 190, cm, 11/24/20 13:50:00 EDT, Height Start Date: 03/15/21 Status: Ordered metFORMIN 500 mg oral tablet, extended release 2 tablet = 1,000 mg, By Mouth, 2 times a day, # 360 tablet, 3 Refills, Maintenance, 11/24/20 14:13:00 EDT, [facility]278, 190, cm, 11/24/20 [...]
--- OUTSIDE RECORDS SUMMARY | 2023-05-24 09:51 | XMS_ITS | Continuity of Care Document ---
Author Name Unknown Organization [facility] Adán Mishra Zach lt Address [address] [place] [address]- Care Team Providers Care Paint Roller Covers Supervisor Name Role Phone Teja LEWIS, Melissa Currie Primary Care Physician [facility] Date[facility]): 05/04/22 - 06/03/22 [facility] Adult [address] [place] [address]- Allergies, Adverse Reactions, Alerts No Known Allergies [...] 6 10/01/08 Gi raymond 1Result Comment: [05/15/2018] 57806-389-87 2Result Comment: [05/04/2017] [id number] 3[facility] 4Admin Note: given at [...] 02/07/22 11:21:00 EDT, Route to Pharmacy Electronically, [facility], 190, cm, 02/07/22 [...] 02/07/22 11:21:00 EDT, Route to Pharmacy Electronically, [facility], 190, cm, 02/07/22 11:05:00 EDT, Height Start Date: 02/07/22 Status: Ordered metFORMIN 500 mg oral tablet, extended release 2 tablet = 1,000 mg, By Mouth, 2 times a day, # 360 tablet, 3 Refills, Maintenance, 02/07/22 11:22:00 EDT, [facility], 190, cm, 02/07/22 [...] Teja LEWIS, Melissa Currie Address: Address: [address] [place], [place] [address]
--- OUTSIDE RECORDS SUMMARY | 2023-05-24 09:51 | XMS_ITS | Continuity of Care Document ---
Author Name Unknown Organization [facility] Zach lt Address [address] [place] [address]- Care Team Providers Care Graphotype Operator Name Role Phone Teja LEWIS, Melissa Currie Primary Care Physician [facility] Date(s): 11/22/21 - 12/22/21 [facility] Adult [address] [place] [address]- Allergies, Adverse Reactions, Alerts No Known Allergies [...] 6 10/01/08 Gi raymond 1Result Comment: [05/15/2018] 11815-344-15 2Result Comment: [05/04/2017] 06407-592-81 3Location History: [facility] 4Admin Note: given at [...] 09/15/21 19:29:00 EST, Route to Pharmacy Electronically, [facility], 190, cm, 07/13/21 14:45:00 [...] 09/15/21 19:23:00 EST, Route to Pharmacy Electronically, [facility], 190, cm, 07/13/21 14:45:00 [...]
--- OUTSIDE RECORDS SUMMARY | 2023-05-24 09:51 | XMS_ITS | Continuity of Care Document ---
Author Name Unknown Organization [facility] Adán Mishra Zach lt Address [address] [place] [address]- Care Team Providers Care Driver Wheelchair Name Role Phone Teja LEWIS, Melissa Currie Primary Care Physician [facility] Date[facility]s): 07/21/22 - 08/20/22 [facility] Adult [address] [place] [address]- Allergies, Adverse Reactions, Alerts No Known Allergies [...] 6 10/01/08 Gi raymond 1Result Comment: [05/15/2018] [id number] 2Result Comment: [05/04/2017] [id number] 3Location History: [facility] 4Admin Note: given at [...] 02/07/22 11:21:00 EDT, Route to Pharmacy Electronically, [facility], 190, cm, 02/07/22 [...] 02/07/22 11:21:00 EDT, Route to Pharmacy Electronically, [facility], 190, cm, 02/07/22 11:05:00 EDT, Height Start Date: 02/07/22 Status: Ordered metFORMIN 500 mg oral tablet, extended release 2 tablet = 1,000 mg, By Mouth, 2 times a day, # 360 tablet, 3 Refills, Maintenance, 02/07/22 11:22:00 EDT, [facility], 190, cm, 02/07/22 [...] (LVEF ~low 20's) 2 Confirmed Active Old OR (myocardial infarction) Confirmed Active Type 2 diabetes mellitus with other circulatory complications 3 Confirmed Active 1S/P OR; bare metal stent to LAD 2007. 2Per cardiology notes; last echo 2013. 3Complicated by CAD/iS/P OR 2007. Social History Social History Type Response Smoking Status Never smoker entered on: 07/03/14 Sex Patient Care team information Care Team Personnel Name: Melissa Lezama NP Position: S PCO Associate Professional Member Role: PCP Address: Address: [address] [place] [address]- Name: Edna BILL, Jordyn Clark Position: [facility] PCO RN Member Role: Primary Care Nurse Care Team Related Persons Name: CARMEN VILLASENOR Address: home [address] [place] [id number]
--- OUTSIDE RECORDS SUMMARY | 2023-05-24 09:51 | XMS_ITS | Continuity of Care Document ---
Author Name Unknown Organization [facility] Adán Mishra Zach lt Address [address] [place] [address]- Care Team Providers Care Specialty Plant Supervisor Name Role Phone Teja LEWIS, Melissa Currie Primary Care Physician [facility] Date[facility]s): 12/08/21 - 01/07/22 [facility] Adult [address] [place] [address]- Attending Physician: AdmIsh armijo Admitting Physician: AdmtrIsh [...] 6 10/01/08 Gi raymond 1Result Comment: [05/15/2018] [id number] 2Result Comment: [05/04/2017] [id number] 3Location History: [facility] 4Admin Note: given at [...] 09/15/21 19:29:00 EST, Route to Pharmacy Electronically, [facility]278, 190, cm, 07/13/21 14:45:00 [...] 09/15/21 19:23:00 EST, Route to Pharmacy Electronically, [facility] 5278, 190, cm, 07/13/21 14:45:00 [...]
--- OUTSIDE RECORDS SUMMARY | 2023-05-24 09:51 | XMS_ITS | Continuity of Care Document ---
Author Name Unknown Organization [facility] Tad Zach lt Address [address] [place] [address]- Care Team Providers Care Brothel Keeper Name Role Phone Teja LEWIS, Melissa Currie Primary Care Physician Encounter [facility] Date(s): 12/02/19 - 12/09/19 [facility] Adult [address] [place] [address]- [facility] Encounter Diagnosis Diabetes mellitus type 2(Discharge Diagnosis) - 12/02/19 Tinea pedis of both feet(Discharge Diagnosis) - 12/02/19 Attending Physician: Not on Staff, Attending MD Allergies, Adverse Reactions, Alerts Substance Reaction [...] 6 10/01/08 Gi raymond 1Result Comment: [05/15/2018] [id number] 2Result Comment: [05/04/2017] [id number] 3Location History: [facility] 4Admin Note: [facility] on 06/[facility]13 5Admin Note: charted for alicia 6Admin Note: charted for alicia Medications Accu-Chek Compact Lancets See Instructions, # 100 each, Refills 3, Tot. Refills 3, Maintenance, To check fasting blood sugar daily. E11.9 DM II, 12/02/19 15:26:00 EDT, Supply, 190, cm, 04/30/19 14:53:00 EDT, Height Start Date: 12/02/19 Status: Ordered ACCU-CHEK Cindy Smartview Glucose Meter See Instructions, # 1 each, Maintenance, To check fasting blood sugar daily. E11.9 DM II, 12/02/19 15:26:00 EDT, Supply, 190, cm, 04/30/19 14:53:00 EDT, Height Start Date: 12/02/19 Status: Ordered ACCU-CHEK Smartview Test Strips See Instructions, # 100 each, Refills 3, Tot. Refills 3, Maintenance, To check fasting blood sugar daily. E11.9 DM II, 12/02/19 15:27:00 EDT, Supply, 190, cm, 04/30/19 14:53:00 EDT, [...] 02/24/20 9:39:00 EDT, 12/02/19 9:39:00 EDT, Cream, [facility], 1 application Topically [...] By Mouth, 2 times a day, # 120 tablet, 0 Refills, Maintenance, 12/02/19 10:18:00 EDT, [facility], 190, cm, 04/30/19 14:53:00 EDT, Height Start Date: 12/02/19 Status: Ordered Vitamin D3 See Instructions, 1000 iu daily, 0 Refills, Maintenance, 10/20/16 13:57:05 Start Date: 10/20/16 Status: Ordered Problem List Condition Effective Dates Status Health Status Inform ant Acute myocardial infarction(Confirmed) Active Coronary artery disease(Confirmed) Active Diabetes mellitus type 2(Confirmed) Active Hodgkin lymphoma(Confirmed) 11/21/84 Active Malignant melanoma of skin(Confirmed) 01/21/15 Active Diagnosis Diagnosis Type Effective Dates Health Status Cl inical Service Informant Diabetes mellitus type 2 Discharge Diagnosis 12/02/19 Tinea pedis of both feet Discharge Diagnosis 12/02/19 Social History Social History Type Response Smoking Status Never smoker entered on: 07/03/14 Sex
--- OUTSIDE RECORDS SUMMARY | 2023-05-24 09:51 | XMS_ITS | Continuity of Care Document ---
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) - 06/13/22 Ischemic cardiomyopathy (LVEF ~low 20's)(Discharge Diagnosis) - 06/13/22 Attending Physician: Teja LEWIS, Melissa Currie Allergies, [...] 6 10/01/08 Gi raymond 1Result Comment: [05/15/2018] [id number] 2Result Comment: [05/04/2017] [id number] 3Location History: [facility] 4Admin Note: given at [...] 02/07/22 11:21:00 EDT, Route to Pharmacy Electronically, [facility], 190, cm, 02/07/22 [...] 02/07/22 11:21:00 EDT, Route to Pharmacy Electronically, [facility], 190, cm, 02/07/22 11:05:00 EDT, Height Start Date: 02/07/22 Status: Ordered metFORMIN 500 mg oral tablet, extended release 2 tablet = 1,000 mg, By Mouth, 2 times a day, # 360 tablet, 3 Refills, Maintenance, 02/07/22 11:22:00 EDT, [facility], 190, cm, 02/07/22 [...] echo 2013. 3Complicated by CAD/iS/P [place] 2007. Diagnosis Diagnosis Type Effective Dates Health Status Clinical Service Informant Type 2 diabetes mellitus with other circulatory complications Discharge Diagnosis 06/13/22 Ischemic cardiomyopathy (LVEF ~low 20's) Discharge Diagnosis 06/13/22 Vital Signs Most recent to oldest [Reference Range]: 1 Height 190 cm (06/13/22 10:47 AM) Social History Social History Type Response Smoking Status Never smoker entered on: 07/03/14 Sex Patient Care team information Care Team Personnel Name: Melissa Lezama NP Position: [facility] PCO Associate Professional Member Role: PCP Address: Address: [address] [place] [address]- Name: Jordyn Bishop RN Position: [facility] PCO RN Member Role: Primary Care Nurse Care Team Related Persons Name: CARMEN VILLASENOR Address: home [address] [place] [address]
--- OUTSIDE RECORDS SUMMARY | 2023-05-24 09:51 | XMS_ITS | Continuity of Care Document ---
Author Name Unknown Organization [facility] Address [address] [place] [address]- Care Team Providers Care Relay Repairer Name Role Phone Teja LEWIS, Melissa Currie Primary Care Physician [phone] Encounter [facility] Date(s): 06/17/21 - 07/17/21 [facility] [address] [place] [address]- Attending Physician: AdmIsh armjio Admitting Physician: Admtr, Ar8 Referring Physician: Admtr, Ar8 Allergies, Adverse Reactions, [...] 6 10/01/08 Gi raymond 1Result Comment: [05/15/2018] [id number] 2Result Comment: [05/04/2017] [id number] 3Location History: [facility] 4Admin Note: given at [...] 03/15/21 18:07:00 EDT, [facility], 190, cm, 11/24/20 13:50:00 EDT, Height Start Date: 03/15/21 Status: Ordered metFORMIN 500 mg oral tablet, extended release 2 tablet = 1,000 mg, By Mouth, 2 times a day, # 360 tablet, 3 Refills, Maintenance, 11/24/20 14:13:00 EDT, [facility], 190, cm, 11/24/20 [...]
--- OUTSIDE RECORDS SUMMARY | 2023-05-24 09:51 | XMS_ITS | Continuity of Care Document ---
Author Name Unknown Organization [facility] Zach lt Address [address] [place] [address]- Care Team Providers Care Dynamics Ax Developer Name Role Phone Teja LEWIS, Melissa Currie Primary Care Physician [phone] [facility] Date(s): 03/09/20 - 04/08/20 [facility] Adult [address] [place] [address]- [facility] Allergies, Adverse Reactions, Alerts Substance Reaction Severity [...] 6 10/01/08 Gi raymond 1Result Comment: [05/15/2018] [id number] 2Result Comment: [05/04/2017] [id number] 3Location History: [facility] 4Admin Note: given at [...] 03/09/20 21:20:00 EDT, Route to Pharmacy Electronically, [facility], 190, cm, 12/20/19 9:27:00 EDT, Height Start Date: 03/09/20 Status: Ordered Lipitor 80 mg oral tablet 1 tablet = 80 mg, By Mouth, Daily, # 90 tablet, 3 Refills, Maintenance, 03/09/20 21:25:00 EDT, Tablet, [facility], 190, cm, 12/20/19 9:27:00 EDT, Height Start Date: 03/09/20 Status: Ordered lisinopril 2.5 mg oral tablet 2.5 mg, 1, tablet, By Mouth, Daily, # 90 tablet, Refills 3, Tot. Refills 3, Maintenance, 03/09/20 21:19:00 EDT, Route to Pharmacy Electronically, [facility], 190, cm, 12/20/19 9:27:00 EDT,Height Start Date: 03/09/20 Status: Ordered metFORMIN 500 mg oral tablet, extended release 2 tablet = 1,000 mg, By Mouth, 2 times a day, # 360 tablet, 3 Refills, Maintenance, 12/20/19 11:01:00 EDT, [facility], 190, cm, 12/20/19 9:27:00 [...]
--- OUTSIDE RECORDS SUMMARY | 2023-05-24 09:51 | XMS_ITS | Continuity of Care Document ---
Author Name Unknown Organization [facility] Primary Car e Johansen Address [address] [place] [address]- Care Team Providers Care Director Agricultural Services Name Role Phone Teja LEWIS, Melissa Currie Primary Care Physician Encounter [facility] NBR [id number] Date(s): 03/15/21 - 04/14/21 [facility] [place] [address] [place], [place] [address] Allergies, Adverse Reactions, Alerts Substance Reaction Severity [...] 6 10/01/08 Gi raymond 1Result Comment: [05/15/2018] [id number] 2Result Comment: [05/04/2017] [id number] 3Location History: [facility] 4Admin Note: [facility] at [facility] on 06/[facility]13 5Admin Note: charted for alicia 6Admin Note: charted for laicia Medications Accu-Chek Compact Lancets See Instructions, # [...] 03/15/21 18:07:00 EDT, Route to Pharmacy Electronically, [facility], 190, cm, 11/24/20 13:50:00 EDT, Height Start Date: 03/15/21 Status: Ordered metFORMIN 500 mg oral tablet, extended release 2 tablet = 1,000 mg, By Mouth, 2 times a day, # 360 tablet, 3 Refills, Maintenance, 11/24/20 14:13:00 EDT, [facility], 190, cm, 11/24/20 13:50:00 [...]
--- OUTSIDE RECORDS SUMMARY | 2023-05-24 09:51 | XMS_ITS | Continuity of Care Document ---
Author Name Unknown Organization [facility] Address [address] [place] [address]- Care Team Providers Care Phthalic Acid Purifier Name Role Phone Teja LEWIS, Melissa Currie Primary Care Physician Encounter [facility] Date(s): 08/12/19 - 08/19/[address] [address]- [facility] Attending Physician: Nito CHRISTIANSEN, Mariangel Almodovar Allergies, Adverse Reactions, Alerts Substance Reaction Severity [...] 6 10/01/08 Gi raymond 1Result Comment: [05/15/2018] [id number] 2Result Comment: [05/04/2017] [id number] 3Location History: [facility] 4Admin Note: given at [facility] on 06/11/13 5Admin Note: charted for alicia 6Admin Note: charted for alicia Medications aspirin buffered 81 mg oral tablet 1 tablet = 81 mg, By Mouth, Daily, # 90 tablet, 3 Refills, Maintenance, 08/21/13 11:12:03 Start Date: 08/21/13 Stop Date: 1/17/15 Status: Ordered carvedilol 12.5 mg oral tablet [...]
--- OUTSIDE RECORDS SUMMARY | 2023-05-24 09:52 | XMS_ITS | Continuity of Care Document ---
Author Name Unknown Organization [facility] Address [address] [place] [address]- Care Team Providers Care Legislative Analyst Name Role Phone Teja LEWIS, Melissa Currie Primary Care Physician [place] [facility] Date(s): 07/17/19 - 11/14/19 [facility] [address] [place] [address]- [facility] Attending Physician: Derick Hood MD Admitting Physician: Derick Hood MD Referring Physician: Melissa Lezama NP Allergies, [...] 6 10/01/08 Gi raymond 1Result Comment: [05/15/2018] [id number] 2Result Comment: [05/04/2017] [id number] 3Location History: [facility] 4Admin Note: given at [...]
--- OUTSIDE RECORDS SUMMARY | 2023-05-24 09:52 | XMS_ITS | Continuity of Care Document ---
Author Name Unknown Organization [facility] Primary Car e Johansen Address [address] [place] [address]- Care Team Providers Care Motel Front Desk Clerk Name Role Phone Teja LEWIS, Melissa Currie Primary Care Physician [phone] Encounter [facility] NBR [id number] Date(s): 03/15/21 - 04/14/21 [facility] [place] [address] [place], [place] [address] Allergies, Adverse Reactions, Alerts Substance Reaction Severity [...] 6 10/01/08 Gi raymond 1Result Comment: [05/15/2018] [id number] 2Result Comment: [05/04/2017] 53645-873-11 3Location History: [facility] 4Admin Note: given at [...] 03/15/21 18:07:00 EDT, Route to Pharmacy Electronically, [facility], 190, cm, 11/24/20 13:50:00 EDT, Height Start Date: 03/15/21 Status: Ordered metFORMIN 500 mg oral tablet, extended release 2 tablet = 1,000 mg, By Mouth, 2 times a day, # 360 tablet, 3 Refills, Maintenance, 11/24/20 14:13:00 EDT, [facility], 190, cm, 11/24/20 [...]
--- OUTSIDE RECORDS SUMMARY | 2023-05-24 09:52 | XMS_ITS | Continuity of Care Document ---
Author Name Unknown Organization [facility] Tad Zach lt Address [address] [place] [address]- Care Team Providers Care Corrugator Machine Operator Name Role Phone Teja LEWIS, Melissa Currie Primary Care Physician [phone] Encounter [facility] Date(s): 03/09/20 - 04/08/20 [facility] Adult [address] [place] [address]- [facility] Allergies, Adverse Reactions, Alerts Substance [...] 6 10/01/08 Gi raymond 1Result Comment: [05/15/2018] [id number] 2Result Comment: [05/04/2017] [id number] 3Location History: [facility] 4Admin Note: given at [...] 03/09/20 21:20:00 EDT, Route to Pharmacy Electronically, [facility], 190, cm, 12/20/19 9:27:00 EDT, Height Start Date: 03/09/20 Status: Ordered Lipitor 80 mg oral tablet 1 tablet = 80 mg, By Mouth, Daily, # 90 tablet, 3 Refills, Maintenance, 03/09/20 21:25:00 EDT, Tablet, [facility], 190, cm, 12/20/19 9:27:00 EDT, Height Start Date: 03/09/20 Status: Ordered lisinopril 2.5 mg oral tablet 2.5 mg, 1, tablet, By Mouth, Daily, # 90 tablet, Refills 3, Tot. Refills 3, Maintenance, 03/09/20 21:19:00 EDT, Route to Pharmacy Electronically, [facility], 190, cm, 12/20/19 9:27:00 EDT,Height Start Date: 03/09/20 Status: Ordered metFORMIN 500 mg oral tablet, extended release 2 tablet = 1,000 mg, By Mouth, 2 times a day, # 360 tablet, 3 Refills, Maintenance, 12/20/19 11:01:00 EDT, [facility], 190, cm, 12/20/19 9:27:00 [...]
--- OUTSIDE RECORDS SUMMARY | 2023-05-24 09:52 | XMS_ITS | Continuity of Care Document ---
Author Name Unknown Organization [facility] Address [address] [place] [address]- Care Team Providers Care Servicing Rep Name Role Phone Teja LEWIS, Melissa Currie Primary Care Physician [place] [facility] [place]s): 02/05/21 - 03/07/21 [facility] [address] [place] [address] Allergies, Adverse Reactions, Alerts Substance Reaction Severity [...] 6 10/01/08 Gi raymond 1Result Comment: [05/15/2018] [id number] 2Result Comment: [05/04/2017] [id number] 3Location History: [facility] 4Admin Note: given at [...] 11/30/20 14:17:00 EDT, Route to Pharmacy Electronically, [facility], 190, cm, 11/24/20 [...] 03/09/20 21:19:00 EDT, Route to Pharmacy Electronically, [facility], 190, cm, 12/20/19 9:27:00 EDT,Height Start Date: 03/09/20 Status: Ordered metFORMIN 500 mg oral tablet, extended release 2 tablet = 1,000 mg, By Mouth, 2 times a day, # 360 tablet, 3 Refills, Maintenance, 11/24/20 14:13:00 EDT, [facility], 190, cm, 11/24/20 [...]
--- OUTSIDE RECORDS SUMMARY | 2023-05-24 09:52 | XMS_ITS | Continuity of Care Document ---
Author Name Unknown Organization [facility] Tad Zach lt Address [address] [place] [address]- Care Team Providers Care Receiving Team Member Name Role Phone Teja LEWIS, Melissa Currie Primary Care Physician [facility] Date(s): 11/15/22 - 12/15/22 [facility] Adult [address] [place] [address]- Allergies, Adverse Reactions, Alerts No Known Allergies [...] 6 10/01/08 Gi raymond 1Result Comment: [05/15/2018] [id number] 2Result Comment: [05/04/2017] [id number] 3Location History: [facility] 4Admin Note: given at [...] 11/23/22 9:28:00 EDT, Route to Pharmacy Electronically, [facility], 190, cm, 11/23/22 8:54:00 [...] 11/23/22 9:28:00 EDT, Route to Pharmacy Electronically, [facility], 190, cm, 11/23/22 8:54:00 EDT, Height Start Date: 11/23/22 Status: Ordered metFORMIN 500 mg oral tablet, extended release 2 tablet = 1,000 mg, By Mouth, 2 times a day, # 360 tablet, 3 Refills, Maintenance, 11/23/22 9:28:00 EDT, [facility], 190, cm, 11/23/22 8:54:00 [...] Associate Professional Member Role: PCP Address: Address: [address] [place] [address]- Name: Edna BILL, Jordyn Clark Position: [facility] PCO RN Member Role: Primary Care Nurse Care Team Related Persons Name: CARMEN VILLASENOR Address: home [address] [place] [address]
--- OUTSIDE RECORDS SUMMARY | 2023-05-24 09:52 | XMS_ITS | Continuity of Care Document ---
Author Name Unknown Organization [facility] Zach lt Address [address] [place] [address]- Care Team Providers Care Warehouse Loader Name Role Phone Teja LEWIS, Melissa Currie Primary Care Physician [phone] Encounter [facility] Date(s): 02/08/22 - 03/10/22 [facility] Adult [address] [place] [address]- Allergies, Adverse Reactions, Alerts No Known Allergies [...] 6 10/01/08 Gi raymond 1Result Comment: [05/15/2018] [id number] 2Result Comment: [05/04/2017] [id number] 3Location History: [facility] 4Admin Note: given at [...] 02/07/22 11:21:00 EDT, Route to Pharmacy Electronically, [facility], 190, cm, 02/07/22 11:05:00 EDT, [...] 02/07/22 11:21:00 EDT, Route to Pharmacy Electronically, [facility], 190, cm, 02/07/22 11:05:00 EDT, Height Start Date: 02/07/22 Status: Ordered metFORMIN 500 mg oral tablet, extended release 2 tablet = 1,000 mg, By Mouth, 2 times a day, # 360 tablet, 3 Refills, Maintenance, 02/07/22 11:22:00 EDT, [facility], 190, cm, 02/07/22 11:05:00 EDT, [...]
--- OUTSIDE RECORDS SUMMARY | 2023-05-24 09:52 | XMS_ITS | Continuity of Care Document ---
Author Name Unknown Organization [facility] Zach lt Address [address] [place] [address]- Care Team Providers Care Enrollment Services Dean Name Role Phone Teja LEWIS, Melissa Currie Primary Care Physician Encounter [facility] Date(s): 02/08/22 - 03/10/22 [facility] Adult [address] [place] [address]- Allergies, Adverse Reactions, Alerts No Known Allergies [...] 6 10/01/08 Gi raymond 1Result Comment: [05/15/2018] [id number] 2Result Comment: [05/04/2017] [id number] 3Location History: [facility] 4Admin Note: given at [...] 02/07/22 11:21:00 EDT, Route to Pharmacy Electronically, [facility], 190, cm, 02/07/22 11:05:00 EDT, [...] 02/07/22 11:21:00 EDT, Route to Pharmacy Electronically, [facility]278, 190, cm, 02/07/22 11:05:00 EDT, Height Start Date: 02/07/22 Status: Ordered metFORMIN 500 mg oral tablet, extended release 2 tablet = 1,000 mg, By Mouth, 2 times a day, # 360 tablet, 3 Refills, Maintenance, 02/07/22 11:22:00 EDT, [facility], 190, cm, 02/07/22 11:05:00 EDT, [...]
--- OUTSIDE RECORDS SUMMARY | 2023-05-24 09:52 | XMS_ITS | Continuity of Care Document ---
Author Name Unknown Organization [facility] Zach lt Address [address] [place] [address]- Care Team Providers Care Director Medical Surgical Name Role Phone Teja LEWIS, Melissa Currie Primary Care Physician [phone] Encounter [facility] Date(s): 06/25/21 - 07/25/21 [facility] Adult [address] [place] [address]- Allergies, Adverse Reactions, Alerts Substance Reaction Severity Status NKA Active Immunizations Given and Recorded Vaccine Date Status Refusal Reason SARS-CoV-2 (COVID-19) mRNA-1273 vaccine 05/25/21 R ecorded SARS-CoV-2 (COVID-19) mRNA-1273 vaccine 10/23/20 R ecorded SARS-CoV-2 (COVID-19) mRNA-1273 vaccine 09/25/20 R ecorded influenza virus vaccine, inactivated 05/06/21 Kaleb rded influenza virus vaccine, inactivated 05/20/19 Give n influenza virus vaccine, inactivated 1 05/15/18 Gi arymond influenza virus vaccine, inactivated 2 05/04/17 Gi raymond influenza virus vaccine, inactivated 3 06/13/15 Re corded influenza virus vaccine, inactivated 4 06/12/13 Gi raymond influ virus vac, H1N1, inactive(oldterm) 05/31/12 Given Pneumococcal Vaccine (oldterm) 5 10/01/08 Given Tet/Diphth/Acel, Pertussis (oldterm) 6 10/01/08 Gi raymond 1Result Comment: [05/15/2018] [id number] 2Result Comment: [05/04/2017] [id number] 3[facility]Admin Note: given at [...] 03/15/21 18:07:00 EDT, Route to Pharmacy Electronically, [id number], 190, cm, 11/24/20 13:50:00 EDT, Height Start Date: 03/15/21 Status: Ordered metFORMIN 500 mg oral tablet, extended release 2 tablet = 1,000 mg, By Mouth, 2 times a day, # 360 tablet, 3 Refills, Maintenance, 11/24/20 14:13:00 EDT, [id number], 190, cm, 11/24/20 13:50:00 [...]
[2023-05-24] MEDS: Racepinephrine HCL 0.5 ML VIAL.NEB INHALE (10:02)
[2023-05-24 10:03] VITALS: PULSE 108; RESP 21; O2SAT 98
[2023-05-24 10:04] LABS: Anion Gap 17 (12-20); Blood Urea Nitrogen 17 mg/dL (9-16); Carbon Dioxide 27 mmol/L (22-29); Chloride 102 mmol/L (96-108); Creatinine Clr Calc Pharmacy 115.2; Estimated Glomerular Filt Rate > 60; Glucose Random 158 mg/dL (60-115); Potassium 4.6 mmol/L (3.3-5.1); Sodium 141 mmol/L (135-145)
--- NOTE | 2023-05-24 10:09 | PC.NURSE ---
tech bedside obtaining cultures at this time.
[2023-05-24 10:12] LABS: Troponin-I High Sensitivity 3.8 ng/L (<3.5-35.0)
[2023-05-24 10:16] LABS: SLIDE REVIEW VERIFIED
[2023-05-24 10:23] LABS: D Dimer High Sensitivity < 150 NG/ML
[2023-05-24 10:27] LABS: Influenza A PCR NEGATIVE (Negative); Influenza B PCR NEGATIVE (Negative); Resp Syncy Virus RNA Qual PCR NEGATIVE (Negative); SARS COV2 PCR INHOUSE NEGATIVE (Negative)
--- NOTE | 2023-05-24 10:47 | PC.NURSE ---
pt sitting in high fowlers position to promote patent airway. pt currently not SOB/WOB. no use of accessory muscles noted post nebulizer treatment/medication administration. stridor subsided at this time. inspiratory/expiratory wheezing still noted upon auscultation but has decreased since gas jockey. pt still increasingly diaphoretic but remains afebrile. respirations now even and unlabored. bedside. call fofana placed within reach.
[2023-05-24] MEDS: levoFLOXacin 500 MG TABLET PO (11:23)
--- NOTE | 2023-05-24 11:24 | PC.NURSE ---
medication administered per provider order.
[2023-05-24 12:18] VITALS: BP 114/84; PULSE 107; RESP 15; TEMP 36.6; O2SAT 99
[2023-05-24 13:09] VITALS: BP 109/75; PULSE 105; RESP 18; TEMP 36.7; O2SAT 99
--- NOTE | 2023-05-24 13:10 | PC.NURSE ---
vss and up to date at this time. sinus tachy on photoengraver apprentice. slight expiratory wheezing still noted at this time. no wob/sob/use off accessory muscles noted. 600ml of pale yellow urine documented in I&O section. call fofana placed within reach.
--- NOTE | 2023-05-24 15:59 | ED_ITS ---
HPI - SOB/Dyspnea General Chief Complaint: Dyspnea Stated Complaint: DIFF BREATHING Time Seen by Provider: 05/24/23 09:24 Source: patient and family () Mode of arrival: ambulatory Limitations: no limitations History of Present Illness HPI Narrative: patient presents with shortness of breath that started last night, he states that he coughed up yellow phlegm and his breathing got much worse MD elicited complaint: shortness of breath, cough and anxiety Pertinent past history: other (vocal cord paralysis and stridor after intubation) Onset (ago): hour(s) Timing: constant Severity: severe Related Data Previous Rx's Medication Instructions Recorded levofloxacin 500 mg tablet 500 mg PO DAILY 7 days #7 tabs 05/24/23 prednisone 20 mg tablet 60 mg (3 x 20 mg) PO DAILY #12 tabs 05/24/23 Allergies Allergy/AdvReac Type Severity Reaction Status Date / Time No Known Allergies Allergy Verified 05/24/23 09:17 Review of Systems 2 Review of Systems: Yes all other systems are reviewed and are negative Neurologic: Denies Sensory deficit (Neuro) [facility] Social History Social History Alcohol intake: current Alcohol intake frequency: holidays/special occasions only Smoked in Last 30 Days: No Use of substances other than those prescribed or required for medical reasons: No Advance Directives: No Advance Directives Information Provided: Yes Physical Exam 2 Vital Signs: Vital Signs: Last Vital Signs Temp 98.0 F 05/24/23 13:09 Pulse 105 H 05/24/23 13:09 Resp 18 05/24/23 13:09 BP 109/75 05/24/23 13:09 Pulse Ox 99 05/24/23 13:09 O2 Del Method Room Air 05/24/23 13:09 O2 Flow Rate 2 05/24/23 09:24 BMI result Body Mass Index 29.3 Const: Other: male looking ill, short of breath and pallor Nutritional Appearance: average body habitus Orientation/consciousness: oriented to person and patient oriented x3 Limitations: no limitations HEENT: Head: Yes normal to inspection Ears: external ears normal General nose exam: Normal external nose present Mouth: Normal oral and palatal mucosa present and oropharynx normal Throat: Yes posterior oropharynx normal Eyes: General: appearance normal, both eyes and all related structures Neck: Other: supple Neck: Yes normal visual inspection Chest: Chest palpation & inspection: normal inspection of the chest Resp: Other: stridor significant with increased work of breathing Cardio: Jugular venous distension: no JVD Rate: regular rate Rhythm: r egular rhythm Heart sounds: S1 normal heart sound present and S2 normal heart sound present GI: Inspection: Yes normal to inspection Palpation (GI): Soft to palpation, nontender and No hepatosplenomegaly present Auscultation: normal bowel sounds : General: Yes no CVA tenderness Back/Spine/Pelvis: Back: no CVA tenderness Skin: General skin exam: no rashes or lesions noted Neuro: General: oriented to person and patient oriented x3 Cranial nerves: Yes CN's II-XII intact bilaterally Motor exam (neuro): 5/5 motor strength present throughout Sensory Exam: No Sensory deficit (Neuro) Extrem: General: Yes normal to inspection Psych: Appearance: grossly normal Course Reevaluation(s) Reevaluation #1: patient initially looked bad improved after racemic epi and has improved stridor with steroids. Will treat the yellow sputum with levaquin. Time: 16:11 Reevaluation #2: I spent 40 minutes of critical care, with interventions, assessments, speaking to patient, consultants, and family. Time: 16:11 Medications Administered Discontinued Medications Generic Name Dose Route Start Last Admin Trade Name Freq PRN Reason Stop Dose Admin Epinephrine 0.5 ml 05/24/23 10:01 05/24/23 10:02 Racepinephrine Hcl 0.5 Ml Vial.Neb INHALE 05/24/23 10:02 0.5 ml ONCE ONE Administration Levofloxacin 500 mg 05/24/23 11:07 05/24/23 11:23 Levofloxacin 500 Mg Tablet PO 05/24/23 11:08 500 mg ONCE ONE Administration Methylprednisolone Sodium Succinate 125 mg 05/24/23 09:41 05/24/23 09:43 Methylprednisolone Sod Succ 125 Mg/2 Ml Vial IVPUSH 05/24/23 09:42 125 mg ONCE ONE Administration Medical Decision Making Differential Diagnosis Differential Diagnoses: The differential diagnosis associated with the presentation includes (STEMI, stridor, pneumonia, PE vocal cord paralysis were all considered) Admission/Observation Consideration of admission/observation: Escalation of care including admission/observation considered (upon arrival patient was considered for admission) Consult Healthcare Provider Management of the patient was discussed with: Retail Selling Specialist (respiratory) Lab Data [facility] Lab Attestation statement: I reviewed the patient's lab results. (elevated WBC noted, covid negative) 05/24/23 09:36 05/24/23 09:36 Labs: Lab Results 05/24/23 Range/Units 09:36 WBC 20.7 H (4.8-10.8) X10*3/uL RBC 5.32 (4.60-5.80) X10*6/uL Hgb 16.7 (14.0-18.0) g/dl Hct 49.3 (42.0-52.0) % MCV 92.7 (80.0-98.0) fL MCH 31.4 (27.0-33.0) pg MCHC 33.9 (31.0-36.0) g/dl RDW 12.8 (11.0-16.0) % Plt Count 341 (160-400) X10*3/uL MPV 10.6 (9.4-12.4) fL Immature Gran % (Auto) 0.4 (0.0-0.4) % Neut % (Auto) 74.3 H (45-73) % Lymph % (Auto) 15.3 L (20-40) % Day % (Auto) 8.5 (2-11) % Eos % (Auto) 1.0 (0-4) % Baso % (Auto) 0.5 (0-2) % Lymph # (Auto) 3.2 (1.2-4.9) X10*3/uL Day # (Auto) 1.8 H (0.1-1.2) X10*3/uL Eos # (Auto) 0.2 (0.0-0.4) X10*3/uL Baso # (Auto) 0.1 (0.0-0.2) X10*3/uL Abs Immat Gran (auto) 0.08 H (0.00-0.03) X10*3/uL Absolute Neuts (auto) 15.4 H (2.0-8.3) x10*3/uL Absolute Nucleated RBC 0.000 (0.0-0.012) X10*3/uL Nucleated RBC % (auto) 0.0 (0.0-0.2) /100WBC Smear Tech's Comments VERIFIED D-Dimer High Sensitivty < 150 NG/ML Sodium 141 (135-145) mmol/L Potassium 4.6 (3.3-5.1) mmol/L Chloride 102 (96-108) mmol/L Carbon Dioxide 27 (22-29) mmol/L Anion Gap 17 (12-20) BUN 17 H (9-16) mg/dL Creatinine 0.75 (0.5-1.4) mg/dL Estim Creat Clear Calc 115.2 Estimated GFR > 60 Random Glucose 158 H (60-115) mg/dL Calcium 10.0 (8.4-10.2) mg/dL Troponin I High Sens 3.8 (<3.5-35.0) ng/L Influenza Type A (PCR) NEGATIVE (Negative) Influenza Type B (PCR) NEGATIVE (Negative) RSV RNA Qual (PCR) NEGATIVE (Negative) SARS-CoV-2 RNA (RT-PCR) NEGATIVE (Negative) Independent Interpretation I performed an independent interpretation of an: EKG (sinus 115, LBBB old no acute st or twave changes) and Plain X-Ray (no infiltrate) Independent Historian Clinical information obtained from an independent historian. History obtained from or confirmed by: Spouse Tests considered The following testing was considered but not selected: CT of chest was considered but ddimer was negative Chronic Conditions Patient?s care impacted by: Other (CAD) Discharge Plan Discharge Clinical Impression: Laryngeal stridor, Bronchitis Patient Disposition: Home, Self-Care Instructions: Acute Bronchitis (ED) Prescriptions: New prednisone 20 mg tablet 60 mg PO DAILY Qty: 12 0RF levofloxacin 500 mg tablet 500 mg PO DAILY 7 Days Qty: 7 0RF Referrals: Melissa Lezama NP [Primary Care Provider] - 3 days
== END 2023-05-24 16:30 | disposition home or self-care (01) ==
PROVIDERS: Emergency Provider Emergency Medicine; PCP Nurse Practitioner Family
DX: J38.5 Laryngeal spasm (principal); J40 Bronchitis, not specified as acute or chronic; R06.02 Shortness of breath; Z20.822 Contact with and (suspected) exposure to COVID-19; Z20.828 Contact with and (suspected) exposure to other viral communicable diseases
CPT/HCPCS: 0241U; 71045; 80048; 84484; 85025; 85379; 87040; 93005; 94640; 96374; 99284; 99285; J2930

== ENCOUNTER 2024-07-10 01:35 | Emergency (ER) | payer MEDICARE, OTHER, SELFPAY ==
--- NOTE | 2024-07-10 | ECG_ITS ---
Test Reason : SOB Blood Pressure : / mmHG Vent. Rate : 092 BPM Atrial Rate : 092 BPM P-R Int : 178 ms QRS Dur : 138 ms QT Int : 400 ms P-R-T Axes : 076 037 091 degrees QTc Int : 494 ms Normal sinus rhythm Non-specific intra-ventricular conduction block Cannot rule out Anteroseptal infarct , age undetermined T wave abnormality, consider lateral ischemia Abnormal ECG No previous ECGs available Referred By: Generic ED Physician Electronically Signed By:EVAN MAHAN MD
--- NOTE | ~2024-07-10 | XR_ITS ---
EXAMINATION: XR CHEST CLINICAL INFORMATION: dyspnea COMPARISON: Chest radiograph 05/24/2023. TECHNIQUE: 2 views of the chest were obtained. FINDINGS: Normal appearance of the cardiomediastinal structures.. Mild aortic calcific atherosclerosis. No effusions or pneumothoraces. Mild biapical pleural parenchymal scarring of the lungs. No focal pulmonary consolidation identified. XR/XR chest 2V IMPRESSION: *No acute cardiopulmonary abnormalities. Electronically signed by: Robson Wilson MD 07/10/2024 04:30 AM MINI
[2024-07-10 01:37] VITALS: BP 130/86; BP 131/86; PULSE 82; PULSE 91; RESP 18; TEMP 36.6; O2SAT 96; O2SAT 97; BMI 21.2
[2024-07-10 01:52] LABS: Basophils Absolute Auto 0.1 X10*3/uL (0.0-0.2); Basophils Percent Auto 0.6 % (0-2); Eosinophils Absolute Auto 0.5 X10*3/uL (0.0-0.4); Eosinophils Percent Auto 2.4 % (0-4); Hematocrit 48.4 % (42.0-52.0); Hemoglobin 16.5 g/dl (14.0-18.0); Imm Gran Abs Auto 0.12 X10*3/uL (0.00-0.03); Imm Gran Pct Auto 0.5 % (0.0-0.4); Lymphocytes Absolute Auto 2.5 X10*3/uL (1.2-4.9); Lymphocytes Percent Auto 11.4 % (20-40); Mean Corpuscular HGB Conc 34.1 g/dl (31.0-36.0); Mean Corpuscular Hemoglobin 32.2 pg (27.0-33.0); Mean Corpuscular Volume 94.5 fL (80.0-98.0); Mean Platelet Volume 10.6 fL (9.4-12.4); Monocytes Percent Auto 9.1 % (2-11); Neutrophils Absolute Auto 16.9 x10*3/uL (2.0-8.3); Platelet Count 340 X10*3/uL (160-400); Red Blood Count 5.12 X10*6/uL (4.60-5.80); Red Cell Distribution Width 12.9 % (11.0-16.0); SCAN SMEAR FLAG 1; White Blood Count 22.3 X10*3/uL (4.8-10.8)
[2024-07-10 01:52] LABS: Venous Blood Gas Refer to POC result
[2024-07-10] MEDS: methylPREDNISolone Sod Succ 125 MG/2 ML VIAL IVPUSH (01:53)
[2024-07-10 01:56] LABS: MANUAL DIFF FLAG SCAN
[2024-07-10 01:58] VITALS: PULSE 86; RESP 16; O2SAT 96
[2024-07-10] MEDS: Racepinephrine HCL 0.5 ML VIAL.NEB INHALE ×2 (01:58→02:46)
[2024-07-10 02:00] LABS: VBG Base Excess 3.6 mmol/L; VBG HCO3 31 mmol/L (22-26); VBG pCO2 58 mmHg; VBG pH 7.33 (7.32-7.43); VBG pO2 35 mmHg
--- NOTE | 2024-07-10 02:00 | PC.NURSE ---
pt biba from home d/t URI sx x 7 days. pt also reporting increased sob x a few hours. pt then noted have audible stridor which then prompted him to be evaluated at the ED. duoneb via EMS w/ good effect. denies chest pain/palpitations/fever/chills. upon ED arrival - a&ox4. vss and up to date. nsr on the cardiac rehabilitation specialist. pt noted to have audible stridor but able to speak in full/clear sentences w/o difficulty. slight wob noted while conversating. 18gIV placed in the left AC - labs obtained/sent to lab. ekg performed by tech. RT called/notified/bedside. pt receiving breathing treatment via RT. medication also administered per provider order. pt waiting for xray to be completed. plan of care ongoing. call fofana placed within reach.
[2024-07-10 02:10] LABS: Albumin Level 4.8 g/dL (3.5-5.0); Anion Gap 17 (12-20); Aspartate Amino Transferase 21 U/L (5-37); Bilirubin Total 0.4 mg/dL (0.0-1.0); Blood Urea Nitrogen 14 mg/dL (9-16); Calcium 10.3 mg/dL (8.4-10.2); Carbon Dioxide 28 mmol/L (22-29); Chloride 103 mmol/L (96-108); Creatinine Clr Calc Pharmacy 96.6; Estimated Glomerular Filt Rate > 60; Glucose Random 178 mg/dL (60-115); Potassium 5.6 mmol/L (3.3-5.1); Sodium 142 mmol/L (135-145)
[2024-07-10 02:12] LABS: B Type Natriuretic Peptide 86 pg/mL (<100)
[2024-07-10 02:19] LABS: Troponin-I High Sensitivity < 2.7 ng/L (<3.5-35.0)
[2024-07-10 02:29] LABS: Alanine Aminotransferase 12 U/L (0-40); Alkaline Phosphatase 72 U/L (39-117)
[2024-07-10] MEDS: Sodium Zirconium Cyclosilicate 5 GM POWD.PACK PO (02:30)
[2024-07-10 02:31] LABS: Influenza A PCR NEGATIVE (Negative); Influenza B PCR NEGATIVE (Negative); Resp Syncy Virus RNA Qual PCR NEGATIVE (Negative); SARS COV2 PCR INHOUSE NEGATIVE (Negative)
--- NOTE | 2024-07-10 02:37 | ED_ITS ---
HPI - SOB/Dyspnea General Chief Complaint: Dyspnea Stated Complaint: SOB Time Seen by Provider: 07/10/24 01:49 Source: patient and old records reviewed Mode of arrival: ambulatory Limitations: no limitations History of Present Illness ED Provider: JOANIE FERNANDEZ Narrative: 64 yo male with PMH of DM, HLD, HTN, CAD with resulting intubation from [place] about 2 years ago and vocal cord dysfunction who has had insp stridor in the past with URI. He notes for 7 days runny nose, cough but no fevers. He then developed stridor today and in the past he has responded to racemic epi and steroids. No travel. No CP. MD elicited complaint: shortness of breath Pertinent past history: other (vocal cord dysfunction and hx of stridor) Onset (ago): day(s) (1) Context: recent illness and other (hx of stridor in past) Timing: constant Severity: moderate Exacerbating factors: exertion and coughing Relieving factors: nothing Known history of: other Associated symptoms: cough Treatment prior to arrival: none Related Data Previous Rx's ?Medication ?Instructions ?Recorded levofloxacin 500 mg tablet 500 mg PO DAILY 7 days #7 tabs 05/24/23 prednisone 20 mg tablet 60 mg (3 x 20 mg) PO DAILY #12 tabs 05/24/23 levofloxacin 500 mg tablet 500 mg PO DAILY #7 tabs 07/10/24 prednisone 20 mg tablet 40 mg (2 x 20 mg) PO DAILY 5 days 07/10/24 #10 tabs Allergies Allergy/AdvReac Type Severity Reaction Status Date / Time No Known Allergies Allergy Verified 07/10/24 01:37 Review of Systems 2 Review of Systems: Constitutional : No Fever, No Chills ENT/Mouth : pos Hoarseness, No sore throat, pos Rhinorrhea Eyes: No Redness, No Discharge, No Vision Changes Cardiovascular : No Chest Pain, pos SOB, No Edema Respiratory : positive Cough, No Sputum, positive Wheezing, Gastrointestinal : No Nausea, No Vomiting, No Diarrhea, No abdominal Pain Genitourinary : No Dysuria, No Hematuria Musculoskeletal : No joint pain, No Myalgias Skin : No rash Neuro : No Weakness, No Numbness, No Headache Psych : No anxiety, depression All other systems reviewed and are negative PMFSH Past Medical History Attestation statement: The following information was validated with the patient. Source: old records reviewed Medical History CAD (coronary artery disease) HTN (hypertension) HLD (hyperlipidemia) Diabetes Social History Social History (Updated 07/10/24 @ 02:52 by Shaunna Varela DO) Alcohol intake: current Alcohol intake frequency: holidays/special occasions only Patient Tobacco Use Status: Never used Tobacco Smoked in Last 30 Days: No Use of substances other than those prescribed or required for medical reasons: No Advance Directives: No Advance Directives Information Provided: Yes Do you have a plan to hurt others: No Plan Physical Exam 2 Vital Signs: Vital Signs: Last Vital Signs Temp 97.8 F 07/10/24 03:20 Pulse 81 07/10/24 03:20 Resp 16 07/10/24 03:20 BP 109/64 07/10/24 03:20 Pulse Ox 96 07/10/24 03:20 O2 Del Method Room Air 07/10/24 03:20 BMI result Body Mass Index 21.2 Appearance: Alert. Oriented X3. No acute distress. Eyes: Pupils equal, round and reactive to light. ENT: Pharynx normal. no angioedema, insp stridor heard Neck: Normal inspection. Neck supple. CVS: Normal heart rate and rhythm. Pulses normal. Respiratory: No respiratory distress. Breath sounds mildly coarse but good air flow Abdomen: Soft and nontender. Skin: Skin warm and dry. Normal skin color. Normal skin turgor. Extremities: No lower extremity edema. No calf ttp Neuro: Oriented X 3. No motor deficit. No sensory deficit. Medications Administered Discontinued Medications Generic Name Dose Route Start Last Admin Trade Name Maxime PRN Reason Stop Dose Admin Epinephrine 0.5 ml 07/10/24 01:49 07/10/24 01:58 Racepinephrine Hcl 0.5 Ml Vial.Neb INHALE 07/10/24 01:50 0.5 ml ONCE ONE Administration Epinephrine 0.5 ml 07/10/24 02:44 07/10/24 02:46 Racepinephrine Hcl 0.5 Ml Vial.Neb INHALE 07/10/24 02:45 0.5 ml ONCE ONE Administration Methylprednisolone Sodium Succinate 125 mg 07/10/24 01:49 07/10/24 01:53 Methylprednisolone Sod Succ 125 Mg/2 Ml Vial IVPUSH 07/10/24 01:50 125 mg ONCE ONE Administration Sodium Zirconium Cyclosilicate 5 gm 07/10/24 02:13 07/10/24 02:30 Sodium Zirconium Cyclosilicate 5 Gm Powd.Pack PO 07/10/24 02:14 5 gm ONCE ONE Administration Medical Decision Making Medical Decision Making [facility] Narrative: 64 yo male with PMH of DM, HLD, HTN, CAD with resulting intubation from [place] about 2 years ago and vocal cord dysfunction who has had insp stridor hx of same in the past at this time will need basic labs, IV steroids, racemic epi, viral panel hx of elevated WBC count in the past it is chronic and not related to severe sepsis or infection at this time will monitor closely for stridor and airway issues. Differential Diagnosis Differential Diagnoses: The differential diagnosis associated with the presentation includes URI, stridor, vocal cord dysfunction Admission/Observation Consideration of admission/observation: Escalation of care including admission/observation considered at this time symptoms resolved no hypoxia not struggling to breathe feels safe for DC steroids and antibiotics Lab Data [facility] Lab Attestation statement: I reviewed the patient's lab results. 07/10/24 01:47 07/10/24 01:47 Labs: Lab Results 07/10/24 07/10/24 Range/Units 01:47 01:52 WBC 22.3 H (4.8-10.8) X10*3/uL RBC 5.12 (4.60-5.80) X10*6/uL Hgb 16.5 (14.0-18.0) g/dl Hct 48.4 (42.0-52.0) % MCV 94.5 (80.0-98.0) fL MCH 32.2 (27.0-33.0) pg MCHC 34.1 (31.0-36.0) g/dl RDW 12.9 (11.0-16.0) % Plt Count 340 (160-400) X10*3/uL MPV 10.6 (9.4-12.4) fL Immature Gran % (Auto) 0.5 H (0.0-0.4) % Neut % (Auto) 76.0 H (45-73) % Lymph % (Auto) 11.4 L (20-40) % [place] % (Auto) 9.1 (2-11) % Eos % (Auto) 2.4 (0-4) % Baso % (Auto) 0.6 (0-2) % Lymph # (Auto) 2.5 (1.2-4.9) X10*3/uL [place] # (Auto) 2.0 H (0.1-1.2) X10*3/uL Eos # (Auto) 0.5 H (0.0-0.4) X10*3/uL Baso # (Auto) 0.1 (0.0-0.2) X10*3/uL Abs Immat Gran (auto) 0.12 H (0.00-0.03) X10*3/uL Absolute Neuts (auto) 16.9 H (2.0-8.3) x10*3/uL Absolute Nucleated RBC 0.000 (0.0-0.012) X10*3/uL Nucleated RBC % (auto) 0.0 (0.0-0.2) /100WBC Smear Tech's Comments VERIFIED VBG pH 7.33 (7.32-7.43) VBG pCO2 58 mmHg VBG pO2 35 mmHg VBG HCO3 31 H (22-26) mmol/L VBG O2 Saturation 50.0 % VBG Base Excess 3.6 mmol/L Sodium 142 (135-145) mmol/L Potassium 5.6 H (3.3-5.1) mmol/L Chloride 103 (96-108) mmol/L Carbon Dioxide 28 (22-29) mmol/L Anion Gap 17 (12-20) BUN 14 (9-16) mg/dL Creatinine 0.83 (0.5-1.4) mg/dL Estim Creat Clear Calc 96.6 Estimated GFR > 60 Random Glucose 178 H (60-115) mg/dL Calcium 10.3 H (8.4-10.2) mg/dL Total Bilirubin 0.4 (0.0-1.0) mg/dL AST 21 (5-37) U/L ALT 12 (0-40) U/L Alkaline Phosphatase 72 (39-117) U/L Troponin I High Sens < 2.7 (<3.5-35.0) ng/L B-Natriuretic Peptide 86 (<100) pg/mL Total Protein 8.0 (6.5-8.0) g/dL Albumin 4.8 (3.5-5.0) g/dL Influenza Type A (PCR) NEGATIVE (Negative) Influenza Type B (PCR) NEGATIVE (Negative) RSV RNA Qual (PCR) NEGATIVE (Negative) SARS-CoV-2 RNA (RT-PCR) NEGATIVE (Negative) Independent Interpretation I performed an independent interpretation of an: EKG and Plain X-Ray (normal) Interpretation: Rate: 92 Rhythm: NSR Dum[place]: normal Normal P waves. Normal CATE. NSIVCD ST T wave : artifact but no BERNICE, nonspecific ST T wave changes lateral leads qTC: 494 prior studies: no sig change The study has been interpreted contemporaneously by me. . Radiology Impression Discussion of test interpretation with radiology: I have reviewed the radiologist's reading. Independent Historian Clinical information obtained from an independent historian. History obtained from or confirmed by: EMS External Record Review External record reviewed: Outpatient record Prescription Management I considered prescription management with: Antibiotic and Other Critical Care Time Critical Care Time Critical Care Time: Yes Total Critical Care Time: 40 Attestation: observation post racemic epi x 2 doses, observation I attest to this time spent taking care of the patient Discharge Plan Discharge Clinical Impression: Acute hyperkalemia, Laryngeal stridor Elevated WBC count Qualifiers: Leukocytosis type: unspecified Qualified Code(s): D72.829 - Elevated white blood cell count, unspecified Patient Disposition: Home, Self-Care Instructions: Hyperkalemia (ED), Leukocytosis (ED), Reactive Airways Disease (ED) Additional Instructions: please repeat CBC and potassium level with your doctor in 2 days return if you symptoms come back as bad as your initial presentation on this visit start the medications today any other concerning symptoms please return Prescriptions: New prednisone 20 mg tablet 40 mg PO DAILY 5 Days Qty: 10 0RF levofloxacin 500 mg tablet 500 mg PO DAILY Qty: 7 0RF No Action prednisone 20 mg tablet 60 mg PO DAILY Qty: 12 0RF levofloxacin 500 mg tablet 500 mg PO DAILY 7 Days Qty: 7 0RF Print Language: Slovenian
[2024-07-10 02:41] LABS: SLIDE REVIEW VERIFIED
--- NOTE | 2024-07-10 03:00 | PC.NURSE ---
pt receiving 2nd breathing tx via RT at this time. pt tolerating well. audible stridor still noted at this time. wob decreased. SPO2 @ 98% on RA. respirations even/unlabored. chest xray results pending at this time. plan of care ongoing. call fofana placed within reach.
[2024-07-10 03:20] VITALS: BP 109/64; PULSE 81; RESP 16; TEMP 36.6; O2SAT 96
[2024-07-10 05:39] VITALS: BP 119/74; PULSE 89; RESP 16; TEMP 36.7; O2SAT 95
[2024-07-10 05:51] VITALS: BP 119/74; PULSE 89; RESP 16; TEMP 36.7; O2SAT 95
== END 2024-07-10 05:52 | disposition home or self-care (01) ==
PROVIDERS: Emergency Provider Emergency Medicine
DX: E87.5 Hyperkalemia (principal); D72.829 Elevated white blood cell count, unspecified; J38.5 Laryngeal spasm; R06.02 Shortness of breath; R05.9 Cough, unspecified; Z03.818 Encounter for observation for suspected exposure to other biological agents ruled out; E11.9 Type 2 diabetes mellitus without complications; I10 Essential (primary) hypertension; E78.5 Hyperlipidemia, unspecified; Z79.899 Other long term (current) drug therapy
CPT/HCPCS: 0241U; 36415; 71046; 80053; 82803; 83880; 84484; 85025; 93005; 94640; 96374; 99284; 99285; J2919

== ENCOUNTER → 2024-07-10 01:43 | Outpatient (BNV) | payer MEDICARE, OTHER, SELFPAY | PROVIDERS: Emergency Provider Emergency Medicine; Visit Provider Internal Medicine Cardiovascular Disease | DX: R94.31 Abnormal electrocardiogram [ECG] [EKG] (principal) | CPT/HCPCS: 93010 ==